=== PATIENT | male | born 1940 | race Caucasian/White ===

== ENCOUNTER 2017-04-10 05:15 | Emergency (ER) | payer OTHER ==
[2017-04-10] MEDS ORDERED: ONDANSETRON 4 MG/2 ML VIAL IVP STA (05:58)
[2017-04-10] MEDS ORDERED: RX INFO: IV CONTRAST WAS GIVEN 1 EACH MISC MISCELLANE PRN (05:58)
[2017-04-10] MEDS ORDERED: SODIUM CHLORIDE 0.9% 1,000 ML IV STA (05:58)
[2017-04-10] MEDS ORDERED: MORPHINE SULFATE 4 MG/ML SYRINGE IV STA (05:58)
[2017-04-10] MEDS ORDERED: FAMOTIDINE 20 MG/2 ML VIAL IV STA (05:59)
--- NOTE | 2017-04-10 06:02 | ED ---
General Adult HPI - General Source: patient, RN notes reviewed Mode of arrival: wheelchair Limitations: no limitations <Medardo Means - Last Filed: 04/10/17 06:25> <Jaime Gonzalez - Last Filed: 04/10/17 08:10> - General Chief complaint: Abdominal Pain Stated complaint: Abdominal Pain Time Seen by Provider: 04/10/17 05:45 - History of Present Illness Initial comments: Patient is a pleasant 76-year-old male presenting to the emergency department complaining of abdominal discomfort. Onset of symptoms was around midnight. Symptoms started following eating pizza bread with dip. Patient does question if the food was related to his symptoms. Patient has mild nausea. Discomfort is somewhat severe. Discomfort is mostly in the umbilical and epigastric region. No vomiting. No constipation or diarrhea. No history of similar symptoms previously. (Medardo Means) - Related Data Home Medications Medication Instructions Recorded Confirmed Cholecalciferol [Vitamin D3] 1,000 unit PO DAILY 04/10/17 04/10/17 Hydrocodone/Acetaminophen [[place] 1 tab PO DAILY PRN 04/10/17 04/10/17 10-325] amLODIPine [Norvasc] 10 mg PO DAILY 04/10/17 04/10/17 Allergies Allergy/AdvReac Type Severity Reaction Status Date / Time No Known Allergies Allergy Verified 04/10/17 07:57 Review of Systems ROS Other: All systems not noted in ROS Statement are negative. Constitutional: Denies: fever Eyes: Denies: eye pain ENT: Denies: ear pain Respiratory: Denies: cough Cardiovascular: Denies: chest pain Endocrine: Denies: fatigue Gastrointestinal: Reports: abdominal pain, nausea. Denies: vomiting Genitourinary: Denies: dysuria Musculoskeletal: Denies: back pain Skin: Denies: rash Neurological: Denies: headache <Medardo Means - Last Filed: 04/10/17 06:25> ROS Other: All systems not noted in ROS Statement are negative. <Jaime Gonzalez - Last Filed: 04/10/17 08:10> ROS Statement: Those systems with pertinent positive or pertinent negative responses have been documented in the HPI. Past Medical History Past Medical History: Hypertension History of Any Multi-Drug Resistant Organisms: None Reported Additional Past Surgical History / Comment(s): left AKA Past Psychological History: No Psychological Hx Reported Smoking Status: Never smoker Past Alcohol Use History: None Reported Past Drug Use History: None Reported <Medardo Means - Last Filed: 04/10/17 06:25> General Exam Limitations: no limitations General appearance: alert, in no apparent distress Head exam: Present: atraumatic Eye exam: Present: normal appearance, PERRL ENT exam: Present: normal oropharynx Neck exam: Present: normal inspection Respiratory exam: Present: normal lung sounds bilaterally Cardiovascular Exam: Present: regular rate, normal rhythm Expanded Peripheral pulses: 0: Dorsalis Pedis (L) (Patient has a prosthetic leg), 2+: Femoral (R), Femoral (L), Dorsalis Pedis (R) GI/Abdominal exam: Present: soft, tenderness (Moderate tenderness in the epigastric and umbilical region), normal bowel sounds. Absent: distended, guarding, rebound, rigid Extremities exam: Present: other (Prosthetic left leg) Back exam: Present: normal inspection. Absent: tenderness Neurological exam: Present: alert Psychiatric exam: Present: normal affect, normal mood Skin exam: Present: normal color <Medardo Means - Last Filed: 04/10/17 06:25> EKG Findings - EKG Comments: EKG Findings:: Sinus bradycardia at 52. For screening AV block [place] 216. QRS 100. QT 440. QTc 409. Normal axis. Normal QRS. Normal ST-T. <Medardo Means - Last Filed: 04/10/17 06:25> Medical Decision Making - Lab Data Result diagrams: 04/10/17 06:00 <Medardo Means - Last Filed: 04/10/17 06:25> - Lab Data Result diagrams: 04/10/17 06:00 04/10/17 06:00 <Jaime Gonzalez - Last Filed: 04/10/17 08:10> - Lab Data Lab Results 04/10/17 04/10/17 04/10/17 Range/Units 06:00 06:00 06:00 WBC 10.0 (3.8-10.6) k/uL RBC 4.76 (4.30-5.90) m/uL Hgb 14.4 (13.0-17.5) gm/dL Hct 43.2 (39.0-53.0) % MCV 90.6 (80.0-100.0) fL MCH 30.3 (25.0-35.0) pg MCHC 33.4 (31.0-37.0) g/dL RDW 13.8 (11.5-15.5) % Plt Count 214 (150-450) k/uL Neutrophils % 90 % Lymphocytes % 7 % Monocytes % 2 % Eosinophils % 0 % Basophils % 0 % Neutrophils # 9.0 H (1.3-7.7) k/uL Lymphocytes # 0.7 L (1.0-4.8) k/uL Monocytes # 0.2 (0-1.0) k/uL Eosinophils # 0.0 (0-0.7) k/uL Basophils # 0.0 (0-0.2) k/uL PT (9.0-12.0) sec INR (<1.2) APTT (22.0-30.0) sec Sodium 139 (137-145) mmol/L Potassium 4.1 (3.5-5.1) mmol/L Chloride 106 (98-107) mmol/L Carbon Dioxide 19 L (22-30) mmol/L Anion Gap 14 mmol/L BUN 15 (9-20) mg/dL Creatinine 0.93 (0.66-1.25) mg/dL Est GFR (MDRD) Af Amer >60 (>60 ml/min/1.73 sqM) Est GFR (MDRD) Non-Af >60 (>60 ml/min/1.73 sqM) Glucose 175 H (74-99) mg/dL Calcium 9.4 (8.4-10.2) mg/dL Total Bilirubin 0.7 (0.2-1.3) mg/dL AST 34 (17-59) U/L ALT 53 (21-72) U/L Alkaline Phosphatase 106 (38-126) U/L Total Creatine Kinase 108 (55-170) U/L CK-MB (CK-2) 2.7 H* (0.0-2.4) ng/mL CK-MB (CK-2) Rel Index 2.5 Troponin I <0.012 (0.000-0.034) ng/mL Total Protein 7.8 (6.3-8.2) g/dL Albumin 4.7 (3.5-5.0) g/dL Amylase 77 (30-110) U/L Lipase 138 (23-300) U/L Urine Color Urine Appearance (Clear) Urine pH (5.0-8.0) Ur Specific [place] (1.001-1.035) Urine Protein (Negative) Urine Glucose (UA) (Negative) Urine Ketones (Negative) Urine Blood (Negative) Urine Nitrite (Negative) Urine Bilirubin (Negative) Urine Urobilinogen (<2.0) mg/dL Ur Leukocyte Esterase (Negative) Urine RBC (0-5) /hpf Urine WBC (0-5) /hpf 04/10/17 04/10/17 Range/Units 06:00 07:00 WBC (3.8-10.6) k/uL RBC (4.30-5.90) m/uL Hgb (13.0-17.5) gm/dL Hct (39.0-53.0) % MCV (80.0-100.0) fL MCH (25.0-35.0) pg MCHC (31.0-37.0) g/dL RDW (11.5-15.5) % Plt Count (150-450) k/uL Neutrophils % % Lymphocytes % % Monocytes % % Eosinophils % % Basophils % % Neutrophils # (1.3-7.7) k/uL Lymphocytes # (1.0-4.8) k/uL Monocytes # (0-1.0) k/uL Eosinophils # (0-0.7) k/uL Basophils # (0-0.2) k/uL PT 9.8 (9.0-12.0) sec INR 1.0 (<1.2) APTT 23.6 (22.0-30.0) sec Sodium (137-145) mmol/L Potassium (3.5-5.1) mmol/L Chloride (98-107) mmol/L Carbon Dioxide (22-30) mmol/L Anion Gap mmol/L BUN (9-20) mg/dL Creatinine (0.66-1.25) mg/dL Est GFR (MDRD) Af Amer (>60 ml/min/1.73 sqM) Est GFR (MDRD) Non-Af (>60 ml/min/1.73 sqM) Glucose (74-99) mg/dL Calcium (8.4-10.2) mg/dL Total Bilirubin (0.2-1.3) mg/dL AST (17-59) U/L ALT (21-72) U/L Alkaline Phosphatase (38-126) U/L Total Creatine Kinase (55-170) U/L CK-MB (CK-2) (0.0-2.4) ng/mL CK-MB (CK-2) Rel Index Troponin I (0.000-0.034) ng/mL Total Protein (6.3-8.2) g/dL Albumin (3.5-5.0) g/dL Amylase (30-110) U/L Lipase (23-300) U/L Urine Color Yellow Urine Appearance Clear (Clear) Urine pH 6.0 (5.0-8.0) Ur Specific [place] 1.012 (1.001-1.035) Urine Protein 1+ H (Negative) Urine Glucose (UA) 2+ H (Negative) Urine Ketones Negative (Negative) Urine Blood Negative (Negative) Urine Nitrite Negative (Negative) Urine Bilirubin Negative (Negative) Urine Urobilinogen <2.0 (<2.0) mg/dL Ur Leukocyte Esterase Negative (Negative) Urine RBC 1 (0-5) /hpf Urine WBC <1 (0-5) /hpf Disposition <Medardo Means - Last Filed: 04/10/17 06:25> <Jaime Gonzalez - Last Filed: 04/10/17 08:10> Clinical Impression: Abdominal pain Disposition: HOME SELF-CARE Condition: Good Instructions: Abdominal Pain (ED) Referrals: Dominic Conrad DO [Primary Care Provider] - 1-2 days
[2017-04-10 06:12] LABS: Basophils % (A) 0 %; CH 30.8; CHCM 34.1; Eosinophils % (A) 0 %; HCT 43.2 % (39.0-53.0); HDW 2.55; HGB 14.4 gm/dL (13.0-17.5); Luc # (Auto) 0.04; Luc % (Auto) 0; Lymphocytes # (A) 0.7 k/uL (1.0-4.8); Lymphocytes % (A) 7 %; MCH 30.3 pg (25.0-35.0); MCHC 33.4 g/dL (31.0-37.0); MCV 90.6 fL (80.0-100.0); Mean Platelet Volume 7.9; Monocytes # (A) 0.2 k/uL (0-1.0); Monocytes % (A) 2 %; Neutrophils % (A) 90 %; RBC 4.76 m/uL (4.30-5.90); RDW 13.8 % (11.5-15.5); WBC (Perox) 9.28
[2017-04-10 06:26] LABS: Partial Thromboplastin Time 23.6 sec (22.0-30.0); Prothrombin Time 9.8 sec (9.0-12.0)
[2017-04-10] MEDS ORDERED: MORPHINE SULFATE 4 MG/ML SYRINGE IVP STA (06:37)
[2017-04-10 06:43] LABS: Blood Urea Nitrogen 15 mg/dL (9-20); Calcium 9.4 mg/dL (8.4-10.2); Carbon Dioxide 19 mmol/L (22-30); Sodium 139 mmol/L (137-145); Total Bilirubin 0.7 mg/dL (0.2-1.3); Total Protein 7.8 g/dL (6.3-8.2)
[2017-04-10 06:52] LABS: Troponin I <0.012 ng/mL (0.000-0.034)
[2017-04-10 06:59] LABS: Creatine Kinase 108 U/L (55-170)
[2017-04-10 07:02] LABS: ALT 53 U/L (21-72); AST 34 U/L (17-59); Alkaline Phosphatase 106 U/L (38-126); Amylase 77 U/L (30-110); Anion Gap 14 mmol/L; Chloride 106 mmol/L (98-107); Glucose 175 mg/dL (74-99); Non-African American GFR(MDRD) >60 (>60 ml/min/1.73 sqM); Potassium 4.1 mmol/L (3.5-5.1)
[2017-04-10 07:04] LABS: Creatine Kinase MB 2.7 ng/mL (0.0-2.4)
[2017-04-10 07:22] LABS: Appearance,Urine Clear (Clear); Bilirubin,Urine Negative (Negative); Glucose,Urine (UA) 2+ (Negative); Ketones,Urine Negative (Negative); Leukocyte Esterase,Urine Negative (Negative); Nitrite,Urine Negative (Negative); Particle Count 550; Protein,Urine 1+ (Negative); RBC,Urine 1 /hpf (0-5); Specific Gravity,Urine 1.012 (1.001-1.035); UA Billing (MACRO vs. MICRO) MICRO; Urobilinogen,Urine <2.0 mg/dL (<2.0); WBC,Urine <1 /hpf (0-5)
--- NOTE | 2017-04-10 07:57 | CT ---
EXAMINATION TYPE: CT abdomen pelvis w con DATE OF EXAM: 04/10/2017 COMPARISON: NONE HISTORY: Mid abd pain CT DLP: 1548 mGycm CONTRAST: CT scan of the abdomen and pelvis is performed without Oral Contrast and with IV Contrast, patient in jected with 100 mL of Omnipaque 300. FINDINGS: LUNG BASES-: Nodular density left lateral lung base is nonspecific and measures 2.4 x 1.0 cm. This co uld reflect an area of postinflammatory change. Follow-up however is recommended in 3-4 months. LIVER/GB: The gallbladder is hydropic and measures 9.3 cm in greatest dimension. There is evidence of cholelithiasis. No gallbladder wall thickening or pericholecystic fluid. No evidence for common bi le duct dilatation. No space occupying hepatic lesion. Biliary tree is of normal caliber. PANCREAS: No inflammation. No distinct mass. SPLEEN: No splenic enlargement. No lesion seen. ADRENALS: 9 mm left adrenal nodule likely reflects an adenoma. The right adrenal gland is unremarkab le. No thickening. KIDNEYS/BLADDER: No hydronephrosis. No nephrolithiasis. Subcentimeter bilateral renal cysts are no margarita one within each kidney. Urinary bladder grossly unremarkable. BOWEL: Normal appendix. Normal bowel caliber. No inflammation. There is sigmoid diverticulosis with out diverticulitis. GENITAL ORGANS: Prostate enlargement with central glandular calcification. LYMPH NODES: No greater than 1cm abdominal or pelvic lymph nodes are appreciated. AORTA: Nonaneurysmal atheromatous change of the abdominal aorta. OSSEOUS STRUCTURES: Gender changes lumbar spine. Grade 1 retrolisthesis of L3 on L4 and grade 1 anter olisthesis of L4 and L5. OTHER: No significant additional abnormality is seen. IMPRESSION: 1. Gallbladder hydrops with cholelithiasis. No evidence for gallbladder wall thickening or pericholec ystic fluid. 2. Nonspecific nodular density left lateral lung base. Correlate clinically and consider follow-up st [facility] in 3-4 months. 3. Sigmoid diverticulosis without diverticulitis.
[2017-04-10 08:53] VITALS: BP 173/79; PULSE 68; RESP 16; TEMP 97
== END 2017-04-10 08:53 | disposition home or self-care (01) ==
LOC: EC 05:15
DX: R10.13 Epigastric pain (principal); R10.33 Periumbilical pain; R11.2 Nausea with vomiting, unspecified; I10 Essential (primary) hypertension; Z79.899 Other long term (current) drug therapy; Z97.14 Presence of artificial left leg (complete) (partial)
CPT/HCPCS: 36415; 93005; 80053; 82150; 82550; 82553; 83690; 84484; 85025; 85610; 85730; 81001; 74177; 99284; 96374; 96375 ×2; 96376; 96361 ×3; J2270; J2405; Q9967

== ENCOUNTER 2017-09-23 11:00 | Emergency (ER) | payer OTHER ==
[2017-09-23 11:06] VITALS: RESP 16
[2017-09-23] MEDS ORDERED: HYDROcodone/APAP 10-325MG 1 EACH TAB PO ONE (12:51)
[2017-09-23] MEDS ORDERED: HYDROmorphone 1 MG/ML 1 ML SYRINGE IM STA ×2 (13:21→15:26)
--- NOTE | 2017-09-23 13:39 | ED ---
Back Pain HPI - General Chief Complaint: Back Pain/Injury Stated Complaint: Pain on lt side up to the back Time Seen by Provider: 09/23/17 12:21 Source: patient, RN notes reviewed, old records reviewed Limitations: no limitations - History of Present Illness Initial Comments: this patient is a 76-year-old male presents emergency room with a chief complaint of left thigh, pelvis pain. He reports that he fell out of his truck yesterday. 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 Patient reports that he uses his prosthetic device all the time. He reports that he thinks that his prosthetic device hit him hard in the mid thigh when he fell out of his truck yesterday. He denies any other injuries associated with the fall. He reports that he has pain whenever he lays back fully. He denies any other symptoms at this time including saddle anesthesias or urinary changes. - Related Data Home Medications Medication Instructions Recorded Confirmed Cholecalciferol [Vitamin D3] 1,000 unit PO DAILY 04/10/17 09/23/17 Hydrocodone/Acetaminophen [[facility] 1 tab PO DAILY PRN 04/10/17 09/23/17 10-325] amLODIPine [Norvasc] 10 mg PO DAILY 04/10/17 09/23/17 Previous Rx's Medication Instructions Recorded Cyclobenzaprine [Flexeril] 10 mg PO TID #15 tab 09/23/17 HYDROcodone/APAP 5-325MG [[facility] 1 tab PO Q6HR PRN #15 tab 09/23/17 5-325] Allergies Allergy/AdvReac Type Severity Reaction Status Date / Time No Known Allergies Allergy Verified 09/23/17 13:08 Review of Systems ROS Statement: Those systems with pertinent positive or pertinent negative responses have been documented in the HPI. ROS Other: All systems not noted in ROS Statement are negative. Past Medical History Past Medical History: Hypertension History of Any Multi-Drug Resistant Organisms: None Reported Additional Past Surgical History / Comment(s): left AKA Past Psychological History: No Psychological Hx Reported Smoking Status: Never smoker Past Alcohol Use History: None Reported Past Drug Use History: None Reported General Exam - General Exam Comments Initial Comments: 76-year-old male. Patient is alert and oriented 4. He does not appear to be in any acute distress. Limitations: no limitations General appearance: alert, in no apparent distress Head exam: Present: atraumatic Eye exam: Present: normal appearance, PERRL, EOMI. Absent: scleral icterus, conjunctival injection, periorbital swelling ENT exam: Present: normal exam, mucous membranes moist Neck exam: Present: normal inspection. Absent: tenderness, meningismus, lymphadenopathy Respiratory exam: Present: normal lung sounds bilaterally. Absent: respiratory distress, wheezes, rales, rhonchi, stridor Cardiovascular Exam: Present: regular rate, normal rhythm, normal heart sounds. Absent: systolic murmur, diastolic murmur, rubs, gallop, clicks GI/Abdominal exam: Present: soft, normal bowel sounds. Absent: distended, tenderness, guarding, rebound, rigid Extremities exam: Present: normal inspection, full ROM, normal capillary refill. Absent: tenderness, pedal edema, joint swelling, calf tenderness Left Hip exam: Present: normal inspection. Absent: full ROM (pain with ROM of flexion and extension of hip. Patient has pain over posterior lumbar spine. ) Upper Leg exam: Present: full ROM, tenderness (over proximal quadriceps and pelvis. ). Absent: normal inspection (left mid thigh amputee. PAtient has prosthetic leg. Skin appears well, no ecchymosis or ulcerations. ) Back exam: Present: normal inspection, tenderness (over sacrum and left pelvis. Patient reports he cannot lay down without pain. ) Neurological exam: Present: alert, oriented X3, CN II-XII intact Psychiatric exam: Present: normal affect, normal mood Skin exam: Present: warm, dry, intact, normal color. Absent: rash Course Vital Signs 09/23/17 09/23/17 09/23/17 11:01 13:03 14:20 Temperature 97.8 F 97.8 F Pulse Rate 64 64 Respiratory 16 16 16 Rate Blood Pressure 174/79 146/70 O2 Sat by Pulse 99 97 Oximetry 09/23/17 09/23/17 15:24 16:11 Temperature 98.1 F 97.8 F Pulse Rate 73 75 Respiratory 16 16 Rate Blood Pressure 173/80 161/79 O2 Sat by Pulse 98 98 Oximetry Medical Decision Making - Medical Decision Making this patient is a 76-year-old male presents emergency room with a chief complaint of left thigh, pelvis pain. He reports that he fell out of his truck yesterday. 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 Patient reports that he uses his prosthetic device all the time. He reports that he thinks that his prosthetic device hit him hard in the mid thigh when he fell out of his truck yesterday. Patient had severe pain with laying down on lumbar spine and pelvis, receiced 2 IM pain injections. Patient underwent xray which show no acute changes. CT pelvis without contrast completed and shows degernative changes in lumbar spine, no acute pelvic or hip fracture. Patient informed of this. I believe minda has pinched nerve within lumbar region causing pain with reclining. Discussed [facility] pain medication and follow up with his electronic health records specialist. Patient agrees to treatment plan and will comply , return parameter discussed. - Radiology Data Radiology results: report reviewed Khoi arthritic degenerative change bilateral hips. No acute osseous normality is evident. Degenerative changes of the lumbar spine. Mild diverticulosis without diverticulitis. Disposition Clinical Impression: Fall, Pain of back and left lower extremity, Degenerative arthritis of lumbar spine Disposition: HOME SELF-CARE Condition: Good Instructions: Acute Low Back Pain (ED) Additional Instructions: Patient has a follow-up with primary care provider in the [place]. Return to emergency department if any alarming signs or symptoms occur. Prescriptions: Cyclobenzaprine [Flexeril] 10 mg PO TID #15 tab HYDROcodone/APAP 5-325MG [[facility] 5-325] 1 tab PO Q6HR PRN #15 tab PRN Reason: Pain Referrals: Dominic Conrad DO [Primary Care Provider] - 1-2 days Time of Disposition: 15:43
--- NOTE | 2017-09-23 14:37 | XR ---
EXAMINATION TYPE: XR femur LT DATE OF EXAM: 09/23/2017 COMPARISON: NONE HISTORY: Pain TECHNIQUE: 5 views submitted FINDINGS: Arthropathy of the hip joint and diffuse osteopenia. Previous surgery noted compatible with amputation. IMPRESSION: No acute fracture. If symptoms persist follow-up exam 7-10 days recommended.
--- NOTE | 2017-09-23 14:39 | XR ---
EXAMINATION TYPE: XR Hip LT and AP Pelvis DATE OF EXAM: 09/23/2017 COMPARISON: NONE HISTORY: Left leg pain TECHNIQUE: A single AP view of the pelvis is obtained. Two views of the left hip are obtained. FINDINGS: There is no acute fracture/dislocation evident in the pelvis. Mild arthropathy of the hip joints. Vascular calcifications in the pelvis. Calcification within the greater trochanteric region n oted. The overlying soft tissue appears unremarkable. Two views of left hip show no acute fracture or dislocation. No focal lytic or sclerotic lesion seen in the proximal femur. The overlying soft tissue is unremarkable. IMPRESSION: There is no acute fracture or dislocation in the pelvis or left hip.
--- NOTE | 2017-09-23 15:33 | CT ---
EXAMINATION TYPE: CT pelvis wo con DATE OF EXAM: 09/23/2017 COMPARISON: NONE HISTORY: Left hip and femur pain, hx of fall injury CT DLP: 841 mGycm Automated exposure control for dose reduction was used. FINDINGS: CT of the pelvis with attention to the left hip is performed in the axial plane at 3 mm thick section s. Prostate calcification is present. Urinary bladder is visualized is normal. Fecal debris is within th e colon. Few scattered diverticuli within the sigmoid colon. Small bowel loops appear unremarkable. V ascular calcifications within the aorta. Facet degenerative changes are within the lumbar spine. Sacroiliac joints appear within normal limits . Femoral heads articulate with the acetabulum. No acute fractures are evident. Joint spaces are narrow ed. Reconstructed images are reviewed in the coronal and sagittal plane. No significant interval change f rom 04/10/2017 is evident. IMPRESSION: 1. OSTEOARTHRITIC DEGENERATIVE CHANGE BILATERAL HIPS. NO ACUTE OSSEOUS ABNORMALITY IS EVIDENT. 2. DEGENERATIVE DISC CHANGES WITHIN THE LUMBAR SPINE. 3. MILD DIVERTICULOSIS WITHOUT ACUTE DIVERTICULITIS.
[2017-09-23 16:12] VITALS: BP 161/79; PULSE 75; TEMP 97.8
== END 2017-09-23 16:31 | disposition home or self-care (01) ==
LOC: EC 11:00
DX: M47.816 Spondylosis without myelopathy or radiculopathy, lumbar region (principal); M16.0 Bilateral primary osteoarthritis of hip; K57.90 Diverticulosis of intestine, part unspecified, without perforation or abscess without bleeding; R10.2 Pelvic and perineal pain; I10 Essential (primary) hypertension; Z79.899 Other long term (current) drug therapy; Z89.612 Acquired absence of left leg above knee; V69.9XXA Occupant (driver) (passenger) of heavy transport vehicle injured in unspecified traffic accident, initial encounter
CPT/HCPCS: 73502; 73552; 72192; 99284; 96372 ×2; J1170

== ENCOUNTER 2017-09-24 19:00 | Emergency (ER) | payer OTHER ==
[2017-09-24] MEDS ORDERED: methylPREDNISolone SOD SUCCI 125 MG/2 ML VIAL IM STA (19:33)
[2017-09-24] MEDS ORDERED: HYDROmorphone 1 MG/ML 1 ML SYRINGE IM STA (19:33)
--- NOTE | 2017-09-24 19:55 | ED ---
General Adult HPI - General Chief complaint: Back Pain/Injury Stated complaint: pain back and rt leg Time Seen by Provider: 09/24/17 19:23 Source: patient, RN notes reviewed Mode of arrival: wheelchair Limitations: physical limitation - History of Present Illness Initial comments: 76-year-old male presents to the emergency department with a chief complaint of left leg pain. He's had this pain for the past 4 weeks. [facility]. He states he is currently getting follow-up to a specialist but he continues have the pain. He states he has not was at home which are not helping with the pain. He states it's in his left lower extremity. Patient denies any recent injury but states when this started. Have a fall. There is no head injury. Patient was concerned due to the continued pain and pain medication yesterday did help until about 4:00 today with a pain free flared up. Patient denies any recent fever, chills, shortness of breath, chest pain, back pain, abdominal pain, nausea vomiting, numbness or tingling, dysuria or hematuria, constipation or diarrhea, headaches or visual changes, or any other current symptoms. - Related Data Home Medications Medication Instructions Recorded Confirmed Cholecalciferol [Vitamin D3] 1,000 unit PO DAILY 04/10/17 09/23/17 Hydrocodone/Acetaminophen [[place] 1 tab PO DAILY PRN 04/10/17 09/23/17 10-325] amLODIPine [Norvasc] 10 mg PO DAILY 04/10/17 09/23/17 Previous Rx's Medication Instructions Recorded Cyclobenzaprine [Flexeril] 10 mg PO TID #15 tab 09/23/17 HYDROcodone/APAP 5-325MG [[place] 1 tab PO Q6HR PRN #15 tab 09/23/17 5-325] HYDROcodone/APAP 10-325MG [[place] 1 tab PO Q4HR PRN #10 tab 09/24/17 10-325] Allergies Allergy/AdvReac Type Severity Reaction Status Date / Time No Known Allergies Allergy Verified 09/23/17 13:08 Review of Systems ROS Statement: Those systems with pertinent positive or pertinent negative responses have been documented in the HPI. ROS Other: All systems not noted in ROS Statement are negative. Past Medical History Past Medical History: Hypertension History of Any Multi-Drug Resistant Organisms: None Reported Additional Past Surgical History / Comment(s): left AKA Past Psychological History: No Psychological Hx Reported Smoking Status: Never smoker Past Alcohol Use History: None Reported Past Drug Use History: None Reported General Exam Limitations: physical limitation General appearance: alert, in no apparent distress ENT exam: Present: normal exam, mucous membranes moist Neck exam: Present: normal inspection. Absent: tenderness, meningismus, lymphadenopathy Respiratory exam: Present: normal lung sounds bilaterally. Absent: respiratory distress, wheezes, rales, rhonchi, stridor Cardiovascular Exam: Present: regular rate, normal rhythm, normal heart sounds. Absent: systolic murmur, diastolic murmur, rubs, gallop, clicks Back exam: Present: normal inspection, full ROM, tenderness (left SI joint) Neurological exam: Present: alert, oriented X3 Psychiatric exam: Present: normal affect, normal mood Skin exam: Present: warm, dry, intact, normal color. Absent: rash Course Vital Signs 09/24/17 19:19 Temperature 96.5 F L Pulse Rate 71 Respiratory 17 Rate Blood Pressure 152/79 O2 Sat by Pulse 97 Oximetry Medical Decision Making - Medical Decision Making 76-year-old male presents for left leg pain. At this time patient's CAT scan is reviewed that does show that he has spinal stenosis. We discussed this result with him. We discussed close follow-up with Dr. Quiñones we discussed return parameters all questions. Patient stated he understood he is given this plan. This and we will be discharged. - Radiology Data Radiology results: report reviewed, image reviewed Disposition Clinical Impression: Spinal stenosis Disposition: HOME SELF-CARE Condition: Stable Instructions: Lumbar Spinal Stenosis (ED) Additional Instructions: Please use medication as discussed. Please follow up with family doctor if symptoms have not improved over the next two days. Please return to the emergency room if your symptoms increase or worsen or for any other concerns. Prescriptions: HYDROcodone/APAP 10-325MG [[place] 10-325] 1 tab PO Q4HR PRN #10 tab PRN Reason: Pain Referrals: Dominic Conrad DO [Primary Care Provider] - 1-2 days Time of Disposition: 21:45
[2017-09-24] MEDS ORDERED: LORazepam 2 MG/ML INJ IM STA (20:06)
--- NOTE | 2017-09-24 21:23 | CT ---
EXAMINATION TYPE: CT lumbar spine wo con DATE OF EXAM: 09/24/2017 8:59 PM COMPARISON: Portable upright HISTORY: Low back pain radiating down left leg. TECHNIQUE: Unenhanced CT of the lumbar spine was performed. Bone and soft tissue window settings are submitted as well as coronal and sagittal reconstructions. Automated exposure control for dose reduc tion was used. CT DLP: 1262.5 mGycm FINDINGS: There is no fracture or malalignment. No focal skeletal lesions. Dextrocurvature with apex at the thoracolumbar junction is noted, this may or may not be positional. Spinal straightening is noted on the sagittal sequence. There are multilevel moderate and marked lumbar spondylosis changes. 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 There is high-grade central canal and lateral recess spinal stenosis at the L3-4 and L4-5 levels, wit h moderate-grade lateral recess stenosis seen at the L2-3 and L5-S1 levels. Miscellaneous: Cholelithiasis is incidentally noted. IMPRESSION: 1. HIGH-GRADE CENTRAL CANAL AND LATERAL RECESS SPINAL STENOSIS AT L3-4 AND L4-5. 2. MODERATE-GRADE LATERAL RECESS SPINAL STENOSIS AT L2-3 AND L5-S1.
[2017-09-24 22:05] VITALS: BP 165/75; PULSE 65; RESP 18; TEMP 97
== END 2017-09-24 22:01 | disposition home or self-care (01) ==
LOC: EC 19:00
DX: M48.061 Spinal stenosis, lumbar region without neurogenic claudication (principal); M48.07 Spinal stenosis, lumbosacral region; I10 Essential (primary) hypertension; Z89.612 Acquired absence of left leg above knee; Z79.899 Other long term (current) drug therapy
CPT/HCPCS: 72131; 99283; 96372 ×3; J2060; J2930; J1170

== ENCOUNTER 2017-10-27 17:08 | Emergency (ER) | payer OTHER ==
[2017-10-27 17:56] VITALS: BP 171/77; PULSE 52; RESP 18; TEMP 97.5
[2017-10-27] MEDS ORDERED: ONDANSETRON 4 MG ODT STARTER PACK 2 TAB BTL PO STA (18:17)
[2017-10-27] MEDS ORDERED: HYDROmorphone 2 MG/ML 1 ML SYRINGE IM STA (18:17)
--- NOTE | 2017-10-27 18:25 | ED ---
General Adult HPI - General Chief complaint: Back Pain/Injury Stated complaint: PAIN ALL OVER X 3 DAYS, POSS WITHDRAWALS Time Seen by Provider: 10/27/17 18:01 Source: patient, RN notes reviewed Mode of arrival: ambulatory Limitations: no limitations - History of Present Illness Initial comments: Patient 77-year-old male who presents emergency room today with a chief complaint of a chronic pain. He does admit to pain in his lower back going down the left leg. Patient does admit that he receives medications from the [facility]. He states he has been waiting for a prescription, and the mail. He states it has not arrived. Patient omits that he's been on the phone trying to get a hold empty final on a is been having increased pain due to it difficult time sleeping. Patient states that he could not take it today and decided to come to be seen to see if there was something that we can do about it. Patient denies any new injury or trauma. He states that his symptoms are chronic and there is nothing new. Patient denies any recent fever, chills, shortness of breath, chest pain, headaches or visual changes, or any other complaints. - Related Data Home Medications Medication Instructions Recorded Confirmed Cholecalciferol [Vitamin D3] 1,000 unit PO DAILY 04/10/17 09/23/17 Hydrocodone/Acetaminophen [[place] 1 tab PO DAILY PRN 04/10/17 09/23/17 10-325] amLODIPine [Norvasc] 10 mg PO DAILY 04/10/17 09/23/17 Previous Rx's Medication Instructions Recorded Cyclobenzaprine [Flexeril] 10 mg PO TID #15 tab 09/23/17 HYDROcodone/APAP 5-325MG [[place] 1 tab PO Q6HR PRN #15 tab 09/23/17 5-325] HYDROcodone/APAP 10-325MG [[place] 1 tab PO Q4HR PRN #10 tab 09/24/17 10-325] Allergies Allergy/AdvReac Type Severity Reaction Status Date / Time No Known Allergies Allergy Verified 10/27/17 17:56 Review of Systems ROS Statement: Those systems with pertinent positive or pertinent negative responses have been documented in the HPI. ROS Other: All systems not noted in ROS Statement are negative. Past Medical History Past Medical History: Hypertension Additional Past Medical History / Comment(s): back pain History of Any Multi-Drug Resistant Organisms: None Reported Past Surgical History: Orthopedic Surgery Additional Past Surgical History / Comment(s): left AKA Past Psychological History: No Psychological Hx Reported Smoking Status: Never smoker Past Alcohol Use History: None Reported Past Drug Use History: None Reported General Exam - General Exam Comments Initial Comments: General: The patient is awake and alert, in no distress, and does not appear acutely ill. Eye: Pupils are equal, round and reactive to light, extra-ocular movements are intact. No nystagmus. There is normal conjunctiva bilaterally. No signs of icterus. Ears, nose, mouth and throat: There are moist mucous membranes and no oral lesions. Neck: The neck is supple, there is no tenderness or JVD. Cardiovascular: There is a regular rate and rhythm. No murmur, rub or gallop is appreciated. Respiratory: Lungs are clear to auscultation, respirations are non-labored, breath sounds are equal. No wheezes, stridor, rales, or rhonchi. Musculoskeletal: Normal ROM. Normal appearance of the lower lumbar. Does have tenderness beginning in the lumbar area. No step-off deformity. No tenderness in the thoracic. Neurological: A&O x 3. CN II-XII intact, There are no obvious motor or sensory deficits. Coordination appears grossly intact. Speech is normal. Skin: Skin is warm and dry and no rashes or lesions are noted. Psychiatric: Cooperative, appropriate mood & affect, normal judgment. Limitations: no limitations Course Vital Signs 10/27/17 17:52 Temperature 97.5 F L Pulse Rate 52 L Respiratory 18 Rate Blood Pressure 171/77 O2 Sat by Pulse 100 Oximetry Medical Decision Making - Medical Decision Making Patient advised that we cannot fill a pain prescription for narcotics here in the emergency room. Did discuss with patient that we could give him a tab of his [place] here or a shot of medication. He states he would rather have a shot. Patient was given dose of Dilaudid and will be discharged advised to follow- up with [facility] tomorrow. Disposition Clinical Impression: Chronic low back pain Disposition: HOME SELF-CARE Condition: Good Instructions: Chronic Back Pain (ED) Additional Instructions: [facility] Please return here to the emergency room if any symptoms increase or worsen. Referrals: [facility]inic [Primary Care Provider] - 1-2 days Time of Disposition: 18:23
== END 2017-10-27 18:32 | disposition home or self-care (01) ==
LOC: EC 17:08
DX: G89.29 Other chronic pain (principal); M54.5 Low back pain; I10 Essential (primary) hypertension; Z79.899 Other long term (current) drug therapy
CPT/HCPCS: 99283; 96372; J1170; S0119

== ENCOUNTER 2020-06-24 21:41 | Inpatient (IN) | payer OTHER, MEDICARE ==
--- NOTE | 2020-06-24 22:13 | ED ---
Neuro HPI - General Chief Complaint: Neuro Symptoms/Deficit Stated Complaint: Altered Status, Confusion Time Seen by Provider: 06/24/20 22:07 Source: patient Mode of arrival: wheelchair Limitations: no limitations - History of Present Illness Is the patient presenting with stroke symptoms?: Yes Last Known Well Date: 06/24/20 Last Known Well Time: 17:00 Onset/Timin -: hour(s) Initial Comments: Anand is a very pleasant 79-year-old gentleman who is brought to the ER today by his son for evaluation of left-sided facial droop, left arm weakness and concern for a stroke. Son states that symptoms began around 5 PM. He no ticed that the patient seemed to have a little bit of trouble speaking left- sided facial droop and weakness in his left arm. He still able to ambulate doesn't appear to have any weakness in the leg though he does have a left [id number] and rotation with the prosthesis. Patient has no stroke history. No significant cardiac history no history of arrhythmia he is not on any anticoagulant or antiplatelet medications. - Related Data Home Medications: Home Medications Medication Instructions Recorded Confirmed Cholecalciferol [Vitamin D3] 1,000 unit PO DAILY 04/10/17 06/24/20 Hydrocodone/Acetaminophen [[place] 2 tab PO QID PRN 04/10/17 06/24/20 10-325] amLODIPine [Norvasc] 10 mg PO DAILY 04/10/17 06/24/20 Naloxone HCl [Narcan] 4 mg NASAL ONCE PRN 06/24/20 06/24/20 Potassium Chloride ER [K-Dur 10] 10 meq PO DAILY 06/24/20 06/24/20 Allergies/Adverse Reactions: Allergies Allergy/AdvReac Type Severity Reaction Status Date / Time No Known Allergies Allergy Verified 06/24/20 23:33 Review of Systems ROS Statement: Those systems with pertinent positive or pertinent negative responses have been documented in the HPI. ROS Other: All systems not noted in ROS Statement are negative. General Exam - General Exam Comments Initial Comments: Physical Exam GENERAL: Patient is well-developed and well-nourished Patient is nontoxic and well-hydrated and is in no distress HENT: Normocephalic, Atraumatic EYES: PERRL, EOMI PULMONARY: Unlabored respirations. No audible rales rhonchi or wheezing was noted CARDIOVASCULAR: There is a regular rate and rhythm without any murmurs gallops or rubs. ABDOMEN: Soft and nontender with normal bowel sounds SKIN: Skin is clear with no lesions or rashes and otherwise unremarkable : Deferred NEUROLOGIC: Patient is alert and oriented x3. Left sided facial droop Left arm droop MUSCULOSKELETAL: Normal extremities with adequate strength and full range of motion. LEFT AKA PSYCHIATRIC: Appropriate situational anxiety Limitations: no limitations Stroke MDM - Lab Data Result diagrams: 06/25/20 04:05 06/25/20 04:05 Lab Results 06/24/20 06/24/20 06/24/20 Range/Units 22:08 22:11 22:11 WBC 6.9 (3.8-10.6) k/uL RBC 4.57 (4.30-5.90) m/uL Hgb 13.1 (13.0-17.5) gm/dL Hct 41.2 (39.0-53.0) % MCV 90.1 (80.0-100.0) fL MCH 28.6 (25.0-35.0) pg MCHC 31.8 (31.0-37.0) g/dL RDW 13.2 (11.5-15.5) % Plt Count 190 (150-450) k/uL Neutrophils % 67 % Lymphocytes % 24 % Monocytes % 5 % Eosinophils % 1 % Basophils % 0 % Neutrophils # 4.7 (1.3-7.7) k/uL Lymphocytes # 1.7 (1.0-4.8) k/uL Monocytes # 0.4 (0-1.0) k/uL Eosinophils # 0.1 (0-0.7) k/uL Basophils # 0.0 (0-0.2) k/uL PT 9.9 (9.0-12.0) sec INR 0.9 (<1.2) APTT 24.0 (22.0-30.0) sec Sodium (137-145) mmol/L Potassium (3.5-5.1) mmol/L Chloride (98-107) mmol/L Carbon Dioxide (22-30) mmol/L Anion Gap mmol/L BUN (9-20) mg/dL Creatinine (0.66-1.25) mg/dL Est GFR (CKD-EPI)AfAm (>60 ml/min/1.73 sqM) Est GFR (CKD-EPI)NonAf (>60 ml/min/1.73 sqM) Glucose (74-99) mg/dL POC Glucose (mg/dL) 109 H (75-99) mg/dL POC Glu Needle Polisher ID Riya Marino Calcium (8.4-10.2) mg/dL Total Bilirubin (0.2-1.3) mg/dL AST (17-59) U/L ALT (4-49) U/L Alkaline Phosphatase (38-126) U/L Troponin I (0.000-0.034) ng/mL Total Protein (6.3-8.2) g/dL Albumin (3.5-5.0) g/dL 06/24/20 06/24/20 Range/Units 22:11 22:11 WBC (3.8-10.6) k/uL RBC (4.30-5.90) m/uL Hgb (13.0-17.5) gm/dL Hct (39.0-53.0) % MCV (80.0-100.0) fL MCH (25.0-35.0) pg MCHC (31.0-37.0) g/dL RDW (11.5-15.5) % Plt Count (150-450) k/uL Neutrophils % % Lymphocytes % % Monocytes % % Eosinophils % % Basophils % % Neutrophils # (1.3-7.7) k/uL Lymphocytes # (1.0-4.8) k/uL Monocytes # (0-1.0) k/uL Eosinophils # (0-0.7) k/uL Basophils # (0-0.2) k/uL PT (9.0-12.0) sec INR (<1.2) APTT (22.0-30.0) sec Sodium 137 (137-145) mmol/L Potassium 4.4 (3.5-5.1) mmol/L Chloride 106 (98-107) mmol/L Carbon Dioxide 23 (22-30) mmol/L Anion Gap 8 mmol/L BUN 24 H (9-20) mg/dL Creatinine 1.29 H (0.66-1.25) mg/dL Est GFR (CKD-EPI)AfAm 61 (>60 ml/min/1.73 sqM) Est GFR (CKD-EPI)NonAf 53 (>60 ml/min/1.73 sqM) Glucose 118 H (74-99) mg/dL POC Glucose (mg/dL) (75-99) mg/dL POC Glu Needle Polisher ID Calcium 9.6 (8.4-10.2) mg/dL Total Bilirubin 0.6 (0.2-1.3) mg/dL AST 27 (17-59) U/L ALT 20 (4-49) U/L Alkaline Phosphatase 116 (38-126) U/L Troponin I <0.012 (0.000-0.034) ng/mL Total Protein 7.9 (6.3-8.2) g/dL Albumin 4.9 (3.5-5.0) g/dL - NIH Stroke Scale 1a. Level of Consciousness: (0) alert 1b. LOC Questions: (0) answers correctly 1c. LOC Commands: (0) performs tasks correctly 2. Best Gaze: (0) normal 3. Visual: (0) no visual loss 4. Facial Palsy: (1) minor paralysis 5a. Motor Arm Left: (1) drift 5b. Motor Arm Right: (0) no drift 6a. Motor Leg Left: (0) no drift 6b. Motor Leg Right: (0) no drift 7. Limb Ataxia: (0) absent 8. Sensory: (0) normal 9. Best Language: (0) no aphasia 10. Dysarthria: (1) mild/moderate dysarthria 11. Extinction/Inattention: (0) no abnormality - Thrombolytic Inclusion/Exclusion Thrombolytic Exclusion Criteria: Symptom Onset > 4.5 Hours Thrombolytic Contraindications: Stroke Too Mild - Medical Decision Making The patient was seen and evaluated immediately upon arrival to the emergency department Patient has left-sided facial droop, left arm weakness mild dysarthria Code stroke activated EKG and avionics system engineer confirms new-onset atrial fibrillation Blood pressure is well-controlled, A. fib is rate controlled Patient care was discussed with Dr. Coty Ace on patient's minimal symptoms and CT CTA findings he feels that the risk of thrombectomy outweighs the benefit at this point. Recommends medical management with loading dose of Brilinta 180, Lipitor 80, aspirin 325. Recommends Brilenta 90 BID, Lipitor 40 daily. Adm ission to the ICU for frequent neuro checks. Patient care was discussed with Dr. Thomason who accepts admission to ICU for neurochecks after acute CVA Patient care discussed with Andrew from [facility] who accepts the admission on behalf of Dr Renee - Radiology Data Radiology results: report reviewed, image reviewed - EKG Data -: EKG Interpreted by Me EKG was obtained as part of the stroke workup, EKG obtained at 2209, repeat is 90 rhythm is narrow complex irregularly irregular rhythm P waves are not present before each QRS this appears to be a new onset atrial fibrillation, QRS narrow at 96 QTc [address] elevations or depressions no evidence of ischemia or infarction. 06/24/20 23:32 Past Medical History Past Medical History: Hypertension Additional Past Medical History / Comment(s): back pain History of Any Multi-Drug Resistant Organisms: None Reported Past Surgical History: Orthopedic Surgery Additional Past Surgical History / Comment(s): left AKA Past Psychological History: No Psychological Hx Reported Smoking Status: Never smoker Past Alcohol Use History: None Reported Past Drug Use History: None Reported Course Vital Signs 06/24/20 06/24/20 06/24/20 21:56 22:10 22:25 Temperature 97.9 F 97.9 F Pulse Rate 76 77 84 Respiratory 18 18 18 Rate Blood Pressure 137/78 167/98 148/100 O2 Sat by Pulse 97 95 96 Oximetry 06/24/20 06/24/20 06/24/20 22:40 22:55 23:10 Temperature 98.0 F 98.0 F 98.0 F Pulse Rate 72 69 64 Respiratory 18 18 18 Rate Blood Pressure 139/80 137/92 141/90 O2 Sat by Pulse 97 97 97 Oximetry 06/24/20 23:40 Temperature 97.9 F Pulse Rate 68 Respiratory 16 Rate Blood Pressure 148/93 O2 Sat by Pulse 97 Oximetry Critical Care Time Critical Care Time: Yes Total Critical Care Time: 30 Critical Care Time: Critical Care Time 30 Critical care time was exclusive of separately billable procedures and treating other patients and teaching time. Critical care was necessary to treat or prevent imminent or life-threatening deterioration. Given the critical condition in which the patient arrived, the patient was immediately assessed by myself and the nurse, and cardiac monitoring initiated due to the potential for rapid decompensation of the patient's clinical condition. During the course of the patients stay, I spent a considerable amount of time at the bedside performing serial re-evaluations of the patient's hemodynamic and clinical status because of the recognized potential threat to life or limb in this condition. I then had a chance to review not only all of the available current laboratory and radiographic studies obtained today, but I also reviewed old records available to me at the time. Additionally, any ancillary information available including clinical veterinarian records were reviewed. Sequential vital signs were obtained. Disposition Clinical Impression: Cerebrovascular accident (CVA), Left acute arterial ischemic stroke, MCA (middle cerebral artery), New onset a-fib Disposition: ADMITTED IP TO THIS HOSP Condition: Serious
[2020-06-24 22:17] LABS: Basophils % (A) 0 %; Eosinophils # (A) 0.1 k/uL (0-0.7); Eosinophils % (A) 1 %; HCT 41.2 % (39.0-53.0); HGB 13.1 gm/dL (13.0-17.5); Lymphocytes # (A) 1.7 k/uL (1.0-4.8); Lymphocytes % (A) 24 %; MCH 28.6 pg (25.0-35.0); MCHC 31.8 g/dL (31.0-37.0); MCV 90.1 fL (80.0-100.0); Mean Platelet Volume 7.6; Monocytes # (A) 0.4 k/uL (0-1.0); Monocytes % (A) 5 %; Neutrophils # (A) 4.7 k/uL (1.3-7.7); Neutrophils % (A) 67 %; Platelet Count 190 k/uL (150-450); RBC 4.57 m/uL (4.30-5.90); RDW 13.2 % (11.5-15.5); WBC 6.9 k/uL (3.8-10.6)
[2020-06-24 22:20] LABS: Glucose,Whole Blood 109 mg/dL (75-99)
[2020-06-24 22:26] LABS: Albumin 4.9 g/dL (3.5-5.0); Calcium 9.6 mg/dL (8.4-10.2); INR 0.9 (<1.2); Potassium 4.4 mmol/L (3.5-5.1); Prothrombin Time 9.9 sec (9.0-12.0); Total Bilirubin 0.6 mg/dL (0.2-1.3); Total Protein 7.9 g/dL (6.3-8.2)
--- NOTE | 2020-06-24 22:32 | CT ---
EXAMINATION TYPE: CT brain wo con for TPA DATE OF EXAM: 06/24/2020 COMPARISON: None HISTORY: NEURO DEFICITS CT DLP: 1122.8 mGycm Automated exposure control for dose reduction was used. There is some cerebral cortical atrophy. There is no mass effect nor midline shift. There is no sign of intracranial hemorrhage. There is white matter hypodensity in both frontal lobes. The calvarium is intact. Skull base is intact. There is incomplete pneumatization left mastoid sinus. IMPRESSION: Mild atrophy. Chronic small vessel ischemia with old lacunar infarct in the anterior left internal ca psule. No acute intracranial abnormality.
--- NOTE | 2020-06-24 22:43 | CT ---
EXAMINATION TYPE: CT angio head neck DATE OF EXAM: 06/24/2020 COMPARISON: None HISTORY: neuro deficits CT DLP: 503.9 mGycm Automated exposure control for dose reduction was used. CONTRAST: Performed with IV Contrast, patient injected with 65 mL of Isovue 370. There are 3-D post processed images. Images obtained from the aortic arch to the vertex of the brain. There is normal branching pattern of the great vessels on the aortic arch. There is bilateral arteria l flow in the subclavian arteries. There is arterial flow in the common internal and external carotid arteries bilaterally. There is arterial flow in both vertebral arteries. There is some tortuosity of the right common carotid artery. There is approximate 50% diameter stenosis of the origin of the rig ht internal carotid artery due to diffuse plaque. There is significant plaque at the left carotid art gretchen bifurcation and more than 90% stenosis. There is arterial flow in the vertebrobasilar artery system. There is no evidence of carotid or verte bral artery aneurysm or dissection. There is arterial flow in the anterior middle and posterior cerebral arteries. I see no evidence of i ntracranial aneurysm or neovascularity. There is no mass effect. There is no evidence of intracranial arterial stenosis. There is normal contrast opacification of the venous sinuses. I see no evidence o f arterial dissection. 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 There is more than 90% stenosis origin left internal carotid artery. No intracranial angiographic abnormality.
--- NOTE | 2020-06-24 23:00 | XR ---
EXAMINATION TYPE: XR chest 2V DATE OF EXAM: 06/24/2020 COMPARISON: NONE HISTORY: Altered mental status TECHNIQUE: FINDINGS: There is no heart failure nor confluent pneumonic infiltrate. Costophrenic angles are clear . There are chest leads. Bony thorax is intact. IMPRESSION: No active cardiopulmonary disease. Normal heart.
[2020-06-24] MEDS ORDERED: TICAGRELOR 90 MG TAB PO STA (23:07)
[2020-06-24] MEDS ORDERED: ATORVASTATIN 80 MG TAB PO STA (23:07)
[2020-06-24] MEDS ORDERED: ASPIRIN 325 MG TAB PO STA (23:07)
[2020-06-24] MEDS ORDERED: NALOXONE 0.4 MG/ML 1 ML VIAL IV PRN (23:20)
[2020-06-24] MEDS: SODIUM CHLORIDE 0.9% 1,000 ML IV SCH (23:43)
[2020-06-25 00:21] LABS: Glucose,Whole Blood 123 mg/dL (75-99)
[2020-06-25 02:47] LABS: Appearance,Urine Clear (Clear); Bilirubin,Urine Negative (Negative); Blood,Urine Negative (Negative); Color,Urine Light Yellow; Glucose,Urine (UA) Negative (Negative); Ketones,Urine Negative (Negative); Leukocyte Esterase,Urine Negative (Negative); Nitrite,Urine Negative (Negative); Protein,Urine Trace (Negative); Specific Gravity,Urine 1.032 (1.001-1.035); Urobilinogen,Urine <2.0 mg/dL (<2.0)
[2020-06-25] MEDS: HYDROcodone/APAP 10-325MG 1 EACH TAB PO PRN ×5 (03:07→21:00)
[2020-06-25 04:18] LABS: Basophils % (A) 0 %; Eosinophils % (A) 1 %; HCT 39.9 % (39.0-53.0); HGB 13.2 gm/dL (13.0-17.5); Lymphocytes # (A) 1.2 k/uL (1.0-4.8); Lymphocytes % (A) 20 %; MCH 30.5 pg (25.0-35.0); MCV 92.4 fL (80.0-100.0); Mean Platelet Volume 7.4; Monocytes # (A) 0.2 k/uL (0-1.0); Monocytes % (A) 4 %; Neutrophils # (A) 4.4 k/uL (1.3-7.7); Neutrophils % (A) 73 %; Platelet Count 178 k/uL (150-450); RBC 4.32 m/uL (4.30-5.90); RDW 12.9 % (11.5-15.5)
[2020-06-25 04:27] LABS: Calcium 9.5 mg/dL (8.4-10.2); Potassium 4.3 mmol/L (3.5-5.1)
--- NOTE | 2020-06-25 07:12 | XR ---
EXAMINATION TYPE: XR chest 1V DATE OF EXAM: 06/25/2020 HISTORY: Shortness of breath. COMPARISON: 06/24/2020 TECHNIQUE: Single view of the chest is submitted. FINDINGS: Demonstrated are scattered senescent parenchymal change. There is no evidence for focal infiltrate. The heart is stable. Hilar and mediastinal structures are within normal limits. Degenerative changes are seen of the dorsal spine. IMPRESSION: 1. Chronic changes without evidence for acute pulmonary disease.
[2020-06-25] MEDS: ATORVASTATIN 40 MG TAB PO SCH (08:47)
[2020-06-25] MEDS: TICAGRELOR 90 MG TAB PO SCH ×2 (08:47→21:00)
[2020-06-25] MEDS: PANTOPRAZOLE 40 MG/10 ML VIAL IV SCH (08:51)
[2020-06-25] MEDS ORDERED: amLODIPine 10 MG TAB PO SCH (09:00)
[2020-06-25 09:22] LABS: Cholesterol 163 mg/dL (<200); HDL Cholesterol 43 mg/dL (40-60); LDL Cholesterol,Calculated 106 mg/dL (0-99); Triglycerides 70 mg/dL (<150)
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
--- NOTE | 2020-06-25 10:34 | US ---
EXAMINATION TYPE: US carotid duplex BILAT DATE OF EXAM: 06/25/2020 COMPARISON: CTA 06/24/2020 CLINICAL HISTORY: Carotid blockages . EXAM MEASUREMENTS: RIGHT: Peak Systolic Velocity (PSV) cm/sec ----- Right CCA: 91.5 ----- Right ICA: 103.1 ----- Right ECA: 101.6 ICA/CCA ratio: 1.1 RIGHT: End Diastole cm/sec ----- Right CCA: 18.8 ----- Right ICA: 20.2 ----- Right ECA: 8.6 LEFT: Peak Systolic Velocity (PSV) cm/sec ----- Left CCA: 63.6 ----- Left ICA: 357.9 ----- Left ECA: 172.5 ICA/CCA ratio: 5.6 LEFT: End Diastole cm/sec ----- Left CCA: 12.0 ----- Left ICA: 44.9 ----- Left ECA: 19.2 VERTEBRALS (direction of flow): Right Vertebral: Antegrade Left Vertebral: Antegrade Rhythm: Arrhythmia Significant stenosis left bulb/ICA with elevated velocities. IMPRESSION: Greater than 70% stenosis left ICA. Criteria for Assigning % of Stenosis / Diameter reduction (Estimation based on the indirect measurements of the internal carotid artery velocities (ICA PSV). 1. Normal (no stenosis)=ICA PSV < 125 cm/s: ratio < 2.0: ICA EDV<40 cm/s. 2. Less than 50% stenosis=ICA PSV < 125 cm/s: ratio < 2.0: ICA EDV<40 cm/s. 3. 50 to 69% stenosis=ICA PSV of 125 to 230 cm/s: ration 2.0 ? 4.0: ICA EDV 40-100 cm/s. 4. Greater than 70% stenosis to near occlusion= ICA PSV > 230 cm/s: ratio > 4.0: ICA EDV > 100 cm/s. 5. Near occlusion= ICA PSV velocities may be low or undetectable: variable ratio and ICA EDV. 6. Total occlusion=unable to detect flow.
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
[2020-06-25] MEDS: SODIUM CHLORIDE 0.9% 1,000 ML IV SCH (14:33)
[2020-06-25] MEDS ORDERED: HEPARIN SODIUM,PORCINE 5,000 UNIT/ML 1 ML VIAL IV PRN (15:00)
[2020-06-25] MEDS ORDERED: HEPARIN SODIUM,PORCINE 5,000 UNIT/ML 1 ML VIAL IV ONE (15:00)
[2020-06-25] MEDS ORDERED: HEPARIN SOD,PORK IN 0.45% NACL 25,000 UNIT in 0.45% NACL 1 250ML.BAG IV SCH (15:00)
[2020-06-25 15:38] LABS: Partial Thromboplastin Time 24.2 sec (22.0-30.0); Prothrombin Time 10.5 sec (9.0-12.0)
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
[2020-06-26] MEDS: SODIUM CHLORIDE 0.9% 1,000 ML IV SCH (02:25)
[2020-06-26 03:38] LABS: Basophils % (A) 0 %; Eosinophils # (A) 0.2 k/uL (0-0.7); Eosinophils % (A) 4 %; HCT 41.1 % (39.0-53.0); HGB 13.2 gm/dL (13.0-17.5); Lymphocytes # (A) 1.5 k/uL (1.0-4.8); Lymphocytes % (A) 26 %; MCH 30.4 pg (25.0-35.0); MCV 94.8 fL (80.0-100.0); Monocytes # (A) 0.3 k/uL (0-1.0); Monocytes % (A) 5 %; Neutrophils # (A) 3.7 k/uL (1.3-7.7); Neutrophils % (A) 62 %; Platelet Count 162 k/uL (150-450); RBC 4.33 m/uL (4.30-5.90)
[2020-06-26 03:47] LABS: Calcium 9.1 mg/dL (8.4-10.2)
[2020-06-26] MEDS: HYDROcodone/APAP 10-325MG 1 EACH TAB PO PRN ×2 (06:16→11:01)
[2020-06-26] MEDS: TICAGRELOR 90 MG TAB PO SCH (08:52)
[2020-06-26] MEDS: ATORVASTATIN 40 MG TAB PO SCH (08:52)
[2020-06-26] MEDS: PANTOPRAZOLE 40 MG/10 ML VIAL IV SCH (08:53)
[2020-06-26] MEDS ORDERED: amLODIPine 5 MG TAB PO SCH (09:00)
[2020-06-26] MEDS ORDERED: APIXABAN 5 MG TAB PO SCH (09:45)
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
--- NOTE | 2020-06-26 11:16 | ECHOF ---
Referral Reason:New onset a-fib MEASUREMENTS -------- HEIGHT: 182.9 cm WEIGHT: 83.9 kg BP: RVIDd: 3.1 cm (< 3.3) IVSd: 1.3 cm (0.6 - 1.1) LVIDd: 4.6 cm (3.9 - 5.3) LVPWd: 1.3 cm (0.6 - 1.1) IVSs: 1.4 cm LVIDs: 3.9 cm LVPWs: 1.2 cm LAESV Index (A-L): 24.56 ml/m Ao Diam: 3.4 cm (2.0 - 3.7) AV Cusp: 1.4 cm (1.5 - 2.6) MV EXCURSION: 21.757 mm (> 18.000) MV EF SLOPE: 107 mm/s (70 - 150) EPSS: 1.3 cm RAP: 5.00 mmHg RVSP: 28.14 mmHg FINDINGS -------- Atrial fibrillation. The rhythm appears to be atrial flutter. This was a technically adequate study. The left ventricular size is normal. Left ventricular wall thickness is normal. Overall left vent ricular systolic function is low-normal with, an EF between 50 - 55 %. Left ventricular fillimg pre ssure cannot be estimated due to Atrial fibrillation. The right ventricle is normal in size. Normal LA size by volume 22+/-6 ml/m2. The right atrial size is normal. There is mild aortic valve sclerosis. There is no evidence of aortic regurgitation. The mitral valve leaflets are mildly thickened. Mild mitral regurgitation is present. Mild tricuspid regurgitation present. Right ventricular systolic pressure is normal at < 35 mmHg. There is no pulmonic regurgitation present. The aortic root size is normal. There is no pericardial effusion. CONCLUSIONS -------- 1. Left ventricular wall thickness is normal. 2. Overall left ventricular systolic function is low-normal with, an EF between 50 - 55 %. 3. Left ventricular fillimg pressure cannot be estimated due to Atrial fibrillation. 4. Normal LA size by volume 22+/-6 ml/m2. 5. There is mild aortic valve sclerosis. 6. Mild mitral regurgitation is present. 7. Mild tricuspid regurgitation present. 8. There is no pericardial effusion. ELECT[employer]ICAL POWER STATION TECHNICIAN: Abby Buchanan RDCS
--- NOTE | 2020-06-26 11:17 | MR ---
MR brain without contrast HISTORY: Cerebral vascular accident Correlation to CT brain 06/24/2020 There are extensive white matter signal abnormalities, hyperintensity and inversion recovery T2-weigh margarita sequences in the periventricular, pericallosal, subcortical white matter. Small focus of restrict ed diffusion present within the right parietal lobe with an area of possible T2 shine through suggest s a small subacute infarct associated with an area of chronic infarct, axial image #18. There is giulia ical atrophy present. There are normal vascular flow voids. Corpus callosum, pituitary, cervical medu llary junction, cerebellopontine angles are within normal limits. Some inflammatory change present wi thin the mastoid air cells on the left, ethmoid air cells. The orbits show symmetric appearance. IMPRESSION: Age-related changes of atrophy and chronic small vessel ischemia, small focus of subacute infarction suspected right parietal lobe as described. Sinus disease, correlate for mastoiditis.
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
[2020-06-26 12:59] VITALS: TEMP 97.8
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
--- NOTE | 2020-06-26 15:25 | P.PN ---
Subjective Progress Note Date: 06/26/20 Patient was seen for a follow-up. Initial consultation performed by Dr. Mckinney yesterday. Please refer to her note for details. Patient came to the hospital for transient left facial droop, possible left- sided weakness although patient is not very sure. Patient has history of left above-knee amputation and has a prosthesis with which he walks fairly well. Patient's all neurological symptoms have resolved. Patient had an MRI of the brain performed today, which revealed age-related changes of atrophy and chronic small vessel ischemia, small focal focus of subacute infarction suspected right parietal lobe. Sinus disease, correlate for mastoiditis. CTA of head and neck showed 50% stenosis of the origin right ICA and more than 90% stenosis origin left ICA. Carotid Doppler revealed greater than 70% stenosis left ICA. 2-D echo showed left ventricular wall thickness is normal. EF is 50-55%. Normal left atrial size. Mild aortic valve sclerosis. Patient has been diagnosed with new onset atrial fibrillation, for which she has been started on Eliquis. Patient also has left ICA stenosis, for which vascular surgery is on board. Patient's lipid panel showed cholesterol 163, LDL 106, HDL 43 and triglycerides 70. Patient's home medications include Norvasc 10 mg, [place], vitamin D, potassium. Objective - Vital Signs Vital signs: Vital Signs Temp 97.8 F 06/26/20 12:00 Pulse 70 06/26/20 12:00 Resp 14 06/26/20 12:00 BP 136/86 06/26/20 12:00 Pulse Ox 97 06/26/20 12:00 Intake & Output 06/25/20 06/26/20 06/26/20 18:59 06:59 18:59 Intake Total 900 975 525 Output Total 1325 1770 300 Balance -425 -795 225 Weight 82.8 kg Intake: IV 900 975 525 0.9 NaCl- 900 975 525 Output: Urine 1325 1770 300 Other: Voiding Method Urinal Urinal Urinal # Voids 0 1 0 - Exam On examination patient is an elderly male, in no acute distress. He is fairly well oriented speech and language functions are normal. Attention and concentration fund of knowledge is adequate. He is hard of hearing. Patient's left pupil is oblong, and the right pupil is small, reactive. He has left ptosis, which is from old injury about couple years ago. Visual sánchez are full. Face is symmetric, tongue protrudes the midline. Palatal elevation sensation normal. On muscle strength testing there is no pronator drift and the strength is normal in arms and legs. He has left prosthetic left lower leg. Sensations are equal no ataxia for [id number] testing tone and bulk of muscles normal. Gait deferred but her nurse he has been walking in the hallway. - Labs CBC & Chem 7: 06/26/20 03:06 06/26/20 03:06 Labs: Abnormal Lab Results - Last 24 Hours (Table) 06/25/20 06/26/20 06/26/20 Range/Units 21:04 03:06 08:10 APTT 49.9 H 57.6 H (22.0-30.0) sec Chloride 112 H (98-107) mmol/L Carbon Dioxide 18 L (22-30) mmol/L Glucose 110 H (74-99) mg/dL Assessment and Plan Assessment: * Acute small right parietal CVA, likely embolic. Clinically patient had TIA. * New onset atrial fibrillation * Left ICA stenosis, severe degree, but clinically asymptomatic. * Hypertension * Hyperlipidemia Plan: * Agree with starting Apixaban for stroke prevention related to atrial fibrillation. * Suggest keeping patient on a single antiplatelet agent as well because of left ICA stenosis. * Continue high-dose statins. * Patient has left ICA stenosis, but is clinically asymptomatic at this time. Suggest outpatient left CEA. * Await hemoglobin A1c. * Neurologically clear for discharge, if cleared by cardiology and vascular surgery.
[2020-06-26 16:25] VITALS: BP 137/82; PULSE 68; RESP 17
[2020-06-27 01:21] LABS: Hemoglobin A1C 5.7 % (4.0-6.0)
[2020-06-27] MEDS ORDERED: PANTOPRAZOLE 40 MG TABLET PO SCH (07:30)
[2020-06-27] MEDS ORDERED: ASPIRIN 81 MG PO SCH (09:00)
--- NOTE | 2020-06-28 10:08 | CDI ---
Documentation Clarification Form Date: 06/28/2020 08:50:00 AM From: Bridgette Omalley Phone: If you have a question about this query, please contact Felisa Arrington, [facility] Call Center Representative at [phone] between 8am and 5pm. Admit Date: 06/24/2020 11:21:00 PM Patient Name: Anand Lucia Visit Number: [id number] Discharge Date: 06/26/2020 04:45:00 PM ATTENTION: The Clinical Documentation Specialists (CDI) and [facility] Coding Staff appreciate your assistance in clarifying documentation. Please respond to the clarification below the line at the bottom and electronically sign. The CDI & [facility] Coding staff will review the response and follow-up if needed. Please note: Queries are made part of the Legal Health Record. If you have any questions, please contact the author of this message via ITS. Dr. Cecy Kidd TIA is documented as a diagnosis in the DCS as possible CVA/TIA involving the MCA on the right side. Patient also has bilateral carotid stenosis 50% on Right and 90% on left. Please clarify if patient's carotid stenosis has caused the patient's weakness, slurred speech and facial droop. Patient history/risk factors: Left sided weaknes, HLD, slurred speech and facial droop. Clinical indicators: Carotid stenosis. CT head: Possible MCA CVA Carotid US: Significant stenosis left. Echo: Atrial fib Treatment: patient on antiplatelet In your professional opinion, please specify underlying etiology of the transient ischemic attack/CVA: Carotid Sinus Syncope Carotid Stenosis with infarct Carotid Stenosis w/o infarct Hemorrhagic Stroke (if know specify specific location) Ischemic Stroke (if know specify cause, specific vessel/location, and laterality): Sequelae of Cerebrovascular Disease (specify Type of Cerebrovascular Disease) Vertebo-Basilar Artery Syndrome Other (please specify): Etiology unknown or Unable to determine Carotid stenosis didn't cause his symptoms MTDD
== END 2020-06-26 16:45 | disposition home or self-care (01) | DRG 69 ==
LOC: EC 21:41 → 2SICU 23:21
PROVIDERS: ADMIT Internal Medicine; ATTEND Internal Medicine
DX: G45.9 Transient cerebral ischemic attack, unspecified (principal); I48.19 Other persistent atrial fibrillation; R47.01 Aphasia; G62.9 Polyneuropathy, unspecified; E78.5 Hyperlipidemia, unspecified; R29.704 NIHSS score 4; I10 Essential (primary) hypertension; H02.402 Unspecified ptosis of left eyelid; I08.3 Combined rheumatic disorders of mitral, aortic and tricuspid valves; I73.9 Peripheral vascular disease, unspecified; R29.810 Facial weakness; Z79.01 Long term (current) use of anticoagulants; Z79.02 Long term (current) use of antithrombotics/antiplatelets; Z79.899 Other long term (current) drug therapy; Z89.612 Acquired absence of left leg above knee; M79.651 Pain in right thigh; M54.9 Dorsalgia, unspecified; G89.29 Other chronic pain; Z98.42 Cataract extraction status, left eye; V89.2XXS Person injured in unspecified motor-vehicle accident, traffic, sequela
CPT/HCPCS: 36415; 70450; 70496; 70498; 70551; 71045; 71046; 80048; 80053; 80061; 81003; 83036; 83735; 84443; 84484; 85025; 85610; 85730; 93005; 93306; 93880; 99291

== ENCOUNTER 2021-09-23 07:45 | Emergency (ER) | payer OTHER, MEDICARE ==
[2021-09-23 07:52] VITALS: RESP 18
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
[2021-09-23] MEDS ORDERED: CASIRIVIMAB (REGN10933) (EUA) 600 MG, IMDEVIMAB (REGN10987) (EUA) 600 MG in SODIUM CHLO... IVPB ONE (09:30)
[2021-09-23] MEDS ORDERED: HYDROcodone/APAP 10-325MG 1 EACH TAB PO ONE (09:55)
[2021-09-23] MEDS ORDERED: SODIUM CHLORIDE 0.9% 50 ML IVPB ONE (10:00)
[2021-09-23 11:10] VITALS: BP 132/76; PULSE 80; TEMP 98
== END 2021-09-23 11:10 | disposition home or self-care (01) ==
LOC: SUPCPDRO 07:45 → EC 07:45
DX: U07.1 COVID-19 (principal); I10 Essential (primary) hypertension; Z86.73 Personal history of transient ischemic attack (TIA), and cerebral infarction without residual deficits; Z79.899 Other long term (current) drug therapy
CPT/HCPCS: 87635; 99283; Q0244

== ENCOUNTER 2021-11-01 16:12 | Emergency (ER) | payer OTHER, MEDICARE ==
[2021-11-01 16:27] VITALS: TEMP 97.3
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
[2021-11-01 17:26] LABS: Basophils % (A) 0 %; Eosinophils # (A) 0.1 k/uL (0-0.7); Eosinophils % (A) 2 %; HCT 32.2 % (39.0-53.0); HGB 10.7 gm/dL (13.0-17.5); Lymphocytes # (A) 1.4 k/uL (1.0-4.8); Lymphocytes % (A) 21 %; MCH 31.9 pg (25.0-35.0); MCHC 33.2 g/dL (31.0-37.0); MCV 96.3 fL (80.0-100.0); Mean Platelet Volume 8.6; Monocytes # (A) 0.3 k/uL (0-1.0); Monocytes % (A) 5 %; Neutrophils # (A) 4.6 k/uL (1.3-7.7); Neutrophils % (A) 70 %; Platelet Count 158 k/uL (150-450); RBC 3.34 m/uL (4.30-5.90); RDW 13.8 % (11.5-15.5); WBC 6.6 k/uL (3.8-10.6)
[2021-11-01 17:34] VITALS: PULSE 78
[2021-11-01 17:39] LABS: INR 1.1 (<1.2); Partial Thromboplastin Time 27.6 sec (22.0-30.0); Prothrombin Time 11.7 sec (9.0-12.0)
[2021-11-01 17:48] LABS: Calcium 9.2 mg/dL (8.4-10.2); Magnesium 2.3 mg/dL (1.6-2.3); Potassium 4.7 mmol/L (3.5-5.1); Total Bilirubin 0.9 mg/dL (0.2-1.3); Total Protein 6.9 g/dL (6.3-8.2)
[2021-11-01 18:33] VITALS: BP 127/81; RESP 16
== END 2021-11-01 18:33 | disposition home or self-care (01) ==
LOC: EC 16:12
DX: R79.9 Abnormal finding of blood chemistry, unspecified (principal); I10 Essential (primary) hypertension
CPT/HCPCS: 36415; 80053; 82272; 83605; 83735; 85025; 85610; 85730; 86850; 86900; 86901; 93005; 99284

== ENCOUNTER 2022-10-04 08:25 | Inpatient (IN) | payer OTHER, MEDICARE ==
[2022-10-04] MEDS ORDERED: FUROSEMIDE 10 MG/ML 4 ML VIAL IV STA (08:37)
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
[2022-10-04 08:55] LABS: Basophils % (A) 0 %; Eosinophils # (A) 0.1 k/uL (0-0.7); Eosinophils % (A) 1 %; HCT 31.6 % (39.0-53.0); HGB 10.3 gm/dL (13.0-17.5); Lymphocytes # (A) 0.9 k/uL (1.0-4.8); Lymphocytes % (A) 17 %; MCH 28.8 pg (25.0-35.0); MCHC 32.4 g/dL (31.0-37.0); MCV 88.8 fL (80.0-100.0); Mean Platelet Volume 8.7; Monocytes # (A) 0.3 k/uL (0-1.0); Monocytes % (A) 6 %; Neutrophils # (A) 3.9 k/uL (1.3-7.7); Neutrophils % (A) 73 %; Platelet Count 177 k/uL (150-450); RBC 3.56 m/uL (4.30-5.90); RDW 14.3 % (11.5-15.5); WBC 5.3 k/uL (3.8-10.6)
[2022-10-04 09:14] LABS: Albumin 4.2 g/dL (3.5-5.0); Calcium 8.8 mg/dL (8.4-10.2); Magnesium 2.1 mg/dL (1.6-2.3); Potassium 4.2 mmol/L (3.5-5.1); Total Bilirubin 1.2 mg/dL (0.2-1.3); Total Protein 7.7 g/dL (6.3-8.2)
[2022-10-04 09:35] LABS: INR 1.1 (<1.2); Partial Thromboplastin Time 31.2 sec (22.0-30.0); Prothrombin Time 11.5 sec (9.0-12.0)
--- NOTE | 2022-10-04 09:39 | XR ---
EXAMINATION TYPE: XR chest 2V DATE OF EXAM: 10/04/2022 9:33 AM COMPARISON: Chest radiographs from 12/21/2021 TECHNIQUE: XR chest 2V Frontal and lateral views of the chest. CLINICAL INDICATION:Male, 81 years old with history of difficulty breathing; FINDINGS: Lungs/Pleura: Elevation of the right hemidiaphragm with moderate right pleural effusion and associate d right basilar patchy airspace opacities. Small left pleural effusion. Pulmonary vascularity: Pulmonary vascular congestion. Heart/mediastinum: Cardiomediastinal silhouette is enlarged . Musculoskeletal: No acute osseous pathology. IMPRESSION: Cardiomegaly with bilateral pleural effusions and right basilar airspace opacity with pulmonary vascu lar congestion. Findings may relate to CHF exacerbation with superimposed infectious process is not e xcluded.
[2022-10-04] MEDS ORDERED: ACETAMINOPHEN TAB 325 MG TAB PO PRN (10:14)
[2022-10-04] MEDS ORDERED: NALOXONE 0.4 MG/ML 1 ML VIAL IV PRN (10:14)
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
[2022-10-04] MEDS: HYDROcodone/APAP 10-325MG 1 EACH TAB PO PRN (20:00)
[2022-10-04] MEDS: APIXABAN 5 MG TAB PO SCH (20:00)
[2022-10-04] MEDS: FUROSEMIDE 10 MG/ML 4 ML VIAL IV SCH (20:01)
[2022-10-05] MEDS: HYDROcodone/APAP 10-325MG 1 EACH TAB PO PRN ×3 (02:01→14:38)
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
[2022-10-05 08:40] VITALS: BP 111/55; PULSE 55; RESP 18
[2022-10-05 08:41] VITALS: TEMP 97.6
[2022-10-05] MEDS: FUROSEMIDE 10 MG/ML 4 ML VIAL IV SCH (08:41)
[2022-10-05] MEDS: APIXABAN 5 MG TAB PO SCH (08:42)
[2022-10-05] MEDS ORDERED: amLODIPine 10 MG TAB PO SCH (09:00)
[2022-10-05] MEDS ORDERED: ATORVASTATIN 40 MG TAB PO SCH (09:00)
[2022-10-05 10:01] LABS: Calcium 8.7 mg/dL (8.4-10.2); Potassium 3.4 mmol/L (3.5-5.1)
[2022-10-05 10:35] VITALS: BMI 22.1
[2022-10-05] MEDS ORDERED: POTASSIUM CHLORIDE ER 20 MEQ TAB.ER PO STA (12:14)
--- NOTE | 2022-10-05 12:29 | P.DS ---
Providers Date of admission: 10/04/22 10:13 Expected date of discharge: 10/05/22 Attending physician: Nick Rachel MD Consults: 10/04/22 17:18 Consult Physician Routine Consulting Provider: Edgar Luke Consult Reason/Comments: CHF exacerbation Do you want consulting provider notified?: Yes Primary care physician: [facility] Course: Patient is a 81-year-old male with PMH of atrial fibrillation, left AKA, hypertension, dyslipidemia presents ED for shortness of breath has been getting worse over the past 2 days. Patient also reports extensive swelling in his right lower extremity. He denies any orthopnea. These symptoms prompted him to come to the ED. He denies any headache, nausea or vomiting, fever or chills, cough, chest pain, palpitations, changes in urination or bowel habits. No changes in appetite or weight. He denies any dizziness, numbness/weakness/tingling of the extremities. In the ED, his vital signs are stable. CBC showed hemoglobin of 10.3. INR was 1.1. D-dimer was 6.1. CMP showed BUN of 24 and glucose 117. Lactic acid negative. Troponin was 0.028, EKG showing atrial fibrillation. BNP 4260, chest x-ray show cardiomegaly with bilateral pleural effusion with pulmonary vascular congestion. Patient is admitted for CHF exacerbation. Patient was diuresed with Lasix 40 mg IV twice a day. He was negative fluid balance of 2.5 L. He lost around 7 kg. Cardiology was consulted and recommended repeat echocardiogram which was done but not read at the time of discharge. Echocardiogram from December 2021 shows EF 40-45% with mild concentric LVH. Patient was seen and examined. No acute events overnight. Patient is adamant about wanting to go home. Patient states that he feels back to baseline. Telemetry noted frequent PVCs and pauses. Due to this, he will not be started on a beta marissa. His amlodipine will be decreased to 5 mg by mouth daily. Lisinopril 2.5 mg by mouth will be added. Aldactone was held due to acute kidney injury. He will need an ischemic workup in the outpatient setting. He is advised follow-up with his PCP within 1-2 days of discharge. He is advised follow-up with cardiology within 1 week of discharge. Patient verbalized understanding of the plan. He was also noted to have an elevated d-dimer of 6.01. Patient adamantly refused any further workup including CTA chest to rule out PE. Patient urged the importance of routine cancer screening including colonoscopy with regard to his anemia. Pertinent studies include chest x-ray, echocardiogram. General: non toxic, no distress, appears at stated age Derm: warm, dry Head: atraumatic, normocephalic, symmetric Eyes: EOMI, no lid lag, anicteric sclera Mouth: no lip lesion, mucus membranes moist Cardiovascular: S1S2 reg, no murmur, positive posterior tibial pulse bilateral, Lungs: Decreased breath sounds bilateral, no rhonchi, no rales , no accessory muscle use Abdominal: soft, nontender to palpation, no guarding, no appreciable organomegaly Ext: no gross muscle atrophy, 1+ pitting right lower extremity edema, no contractures, left AKA Neuro: no focal neuro deficits Psych: Alert, oriented, appropriate affect Discharge diagnosis: #Acute on chronic diastolic and systolic CHF exacerbation #Elevated d-dimer #Normocytic anemia #Acute kidney injury Chronic conditions: Atrial fibrillation, hypertension, dyslipidemia This complex discharge took 35 minutes to complete. Patient Condition at Discharge: Stable Plan - Discharge Summary New Discharge Prescriptions: New lisinopriL [Zestril] 2.5 mg PO DAILY #30 tab amLODIPine [Norvasc] 5 mg PO DAILY #30 tab Continue Hydrocodone/Acetaminophen [[place] 10-325] 2 tab PO QID Potassium Chloride ER [K-Dur 10] 10 meq PO DAILY Apixaban [Eliquis] 5 mg PO BID #60 tab Atorvastatin [Lipitor] 40 mg PO DAILY Cholecalciferol [Vitamin D3 (25 Mcg = 1000 Iu)] 25 mcg PO DAILY Furosemide [Lasix] 40 mg PO DAILY Discontinued amLODIPine [Norvasc] 10 mg PO DAILY Discharge Medication List Hydrocodone/Acetaminophen [[place] 10-325] 2 tab PO QID 04/10/17 [History] Potassium Chloride ER [K-Dur 10] 10 meq PO DAILY 06/24/20 [History] Apixaban [Eliquis] 5 mg PO BID #60 tab 06/26/20 [Rx] Atorvastatin [Lipitor] 40 mg PO DAILY 09/23/21 [History] Cholecalciferol [Vitamin D3 (25 Mcg = 1000 Iu)] 25 mcg PO DAILY 10/04/22 [History] Furosemide [Lasix] 40 mg PO DAILY 10/04/22 [History] amLODIPine [Norvasc] 5 mg PO DAILY #30 tab 10/05/22 [Rx] lisinopriL [Zestril] 2.5 mg PO DAILY #30 tab 10/05/22 [Rx] Follow up Appointment(s)/Referral(s): Edgar Luke MD [STAFF PHYSICIAN] - 1 Week [facility],Clinic [Primary Care Provider] - 1-2 days Activity/Diet/Wound Care/Special Instructions: Diet: Fluid restriction to 1.5L daily. Low salt. Cardiac Follow up PCP within 1-2 days of discharge. Follow up with Cardiology within 1 week of discharge. Take all medications as advised. Come back to the ED for worsening chest pain, shortness of breath, lightheadedness, palpitations. Discharge Disposition: HOME SELF-CARE
[2022-10-06] MEDS ORDERED: amLODIPine 5 MG TAB PO SCH (09:00)
--- NOTE | 2022-10-06 11:18 | CA ---
Transthoracic Echo Report Name: Anand Lucia Age: 81 Gender: M : 1940 Exam Date: 10/05/2022 09:15 Exam Location: [facility] Ht (in): 72 Wt (lb): 162 Ordering Physician: Edgar Luke MD ([id number]) Attending/Referring Phys: Dry End Operator Hanna Jeff RDCS Procedure CPT: Indications: chf Cardiac Hx: Technical Quality: Fair Contrast 1: Total Dose (mL): Contrast 2: Total Dose (mL): MEASUREMENTS (Male / Female) Normal Values 2D ECHO LV Diastolic Diameter PLAX 5.1 cm 4.2 - 5.9 / 3.9 - 5.3 cm LV Systolic Diameter PLAX 2.9 cm IVS Diastolic Thickness 1.5 cm 0.6 - 1.0 / 0.6 - 0.9 cm LVPW Diastolic Thickness 1.3 cm 0.6 - 1.0 / 0.6 - 0.9 cm LV Relative Wall Thickness 0.6 RV Internal Dim ED PLAX 4.2 cm LA Volume 112.0 cm??? 18 - 58 / 22 - 52 cm??? M-MODE Aortic Root Diameter MM 3.1 cm LA Systolic Diameter MM 4.9 cm LA Ao Ratio MM 1.6 AV Cusp Separation MM 1.8 cm DOPPLER AV Peak Velocity 171.6 cm/s AV Peak Gradient 11.8 mmHg AV Mean Velocity 122.4 cm/s AV Mean Gradient 6.6 mmHg AV Velocity Time Integral 34.9 cm LVOT Peak Velocity 101.4 cm/s LVOT Peak Gradient 4.1 mmHg TR Peak Velocity 284.3 cm/s TR Peak Gradient 32.3 mmHg Right Ventricular Systolic Press 36.9 mmHg FINDINGS Left Ventricle Moderately increased left ventricular wall thickness. Normal left ventricular systolic function with no obvious regional wall motion abnormalities. Left ventricular cavity size normal. Left ventricular ejection fraction is estimated at 50-55 %. Right Ventricle Moderate right ventricular dilatation. Mild pulmonary hypertension. Right Atrium Moderate right atrial dilatation. Left Atrium Severely increased left atrial volume. Moderately increased left atrial area. Mitral Valve Mild thickening/calcification of the mitral valve leaflets. Mild mitral annular calcification. Mild mitral regurgitation. Aortic Valve Trileaflet aortic valve. No aortic valve stenosis or regurgitation. Tricuspid Valve Moderate tricuspid regurgitation. Pulmonic Valve Trace pulmonic regurgitation. Pericardium No pericardial effusion. Aorta Normal size aortic root and proximal ascending aorta. CONCLUSIONS Normal biventricular dimension and systolic function Severe biatrial enlargement Mitral annular calcification with mild to moderate mitral regurgitation Mild pulmonary hypertension Moderate tricuspid regurgitation Previewed by: Dr. Edgar Luke MD (Electronically Signed) Final Date: 06 October 2022 11:17
== END 2022-10-05 18:16 | disposition home or self-care (01) | DRG 291 ==
LOC: EC 08:25 → 3SCARD 10:13
PROVIDERS: ADMIT Student in an Organized Health Care Education/Training Program; ATTEND Student in an Organized Health Care Education/Training Program
DX: I11.0 Hypertensive heart disease with heart failure (principal); I50.43 Acute on chronic combined systolic (congestive) and diastolic (congestive) heart failure; I48.21 Permanent atrial fibrillation; N17.9 Acute kidney failure, unspecified; I42.9 Cardiomyopathy, unspecified; D64.9 Anemia, unspecified; E78.5 Hyperlipidemia, unspecified; I08.1 Rheumatic disorders of both mitral and tricuspid valves; I27.20 Pulmonary hypertension, unspecified; R09.02 Hypoxemia; I49.3 Ventricular premature depolarization; Z89.612 Acquired absence of left leg above knee; Z79.01 Long term (current) use of anticoagulants; Z79.899 Other long term (current) drug therapy; Z86.16 Personal history of COVID-19; Z86.73 Personal history of transient ischemic attack (TIA), and cerebral infarction without residual deficits; Z28.310 Unvaccinated for COVID-19; R79.1 Abnormal coagulation profile; Z88.5 Allergy status to narcotic agent
CPT/HCPCS: 36415; 71046; 80048; 80053; 83605; 83735; 83880; 84484; 85025; 85379; 85610; 85730; 93005; 93306; 96374; 99285

== ENCOUNTER 2023-01-02 15:11 | Emergency (ER) | payer OTHER, MEDICARE ==
[2023-01-02] MEDS ORDERED: DEXAMETHASONE SOD PHOSPHATE 10 MG/ML 1 ML VIAL IVP STA (16:11)
[2023-01-02] MEDS ORDERED: SODIUM CHLORIDE 0.9% 1,000 ML IV STA (16:11)
[2023-01-02] MEDS ORDERED: KETOROLAC 15 MG/ML 1 ML VIAL IVP STA (16:11)
[2023-01-02] MEDS ORDERED: TOBRAMYCIN 0.3% OPHTH DROPS 5 ML BTL RIGHT EYE STA (16:13)
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
[2023-01-02 16:53] LABS: Basophils % (A) 0 %; Eosinophils % (A) 1 %; HCT 30.1 % (39.0-53.0); HGB 9.7 gm/dL (13.0-17.5); Lymphocytes # (A) 0.6 k/uL (1.0-4.8); Lymphocytes % (A) 13 %; MCH 27.7 pg (25.0-35.0); MCHC 32.2 g/dL (31.0-37.0); MCV 86.1 fL (80.0-100.0); Monocytes # (A) 0.3 k/uL (0-1.0); Monocytes % (A) 7 %; Neutrophils # (A) 3.5 k/uL (1.3-7.7); Neutrophils % (A) 77 %; Platelet Count 203 k/uL (150-450); RDW 14.6 % (11.5-15.5); WBC 4.5 k/uL (3.8-10.6)
[2023-01-02] MEDS ORDERED: FLUORESCEIN STRIPS 1 MG STRIP RIGHT EYE STA (17:17)
[2023-01-02 17:19] LABS: ALT 13 U/L (4-49); AST 25 U/L (17-59); African American GFR (CKD) >90 (>60 ml/min/1.73 sqM); Albumin 3.6 g/dL (3.5-5.0); Alkaline Phosphatase 195 U/L (38-126); Anion Gap 10 mmol/L; Blood Urea Nitrogen 18 mg/dL (9-20); Calcium 8.4 mg/dL (8.4-10.2); Carbon Dioxide 22 mmol/L (22-30); Chloride 104 mmol/L (98-107); Glucose 112 mg/dL (74-99); Magnesium 1.9 mg/dL (1.6-2.3); Non-African American GFR(CKD) 85 (>60 ml/min/1.73 sqM); Phosphorus 3.1 mg/dL (2.5-4.5); Sodium 136 mmol/L (137-145); Total Bilirubin 1.3 mg/dL (0.2-1.3); Total Protein 7.2 g/dL (6.3-8.2)
[2023-01-02 17:50] LABS: Potassium 4.8 mmol/L (3.5-5.1)
[2023-01-02 18:51] VITALS: BP 136/78; PULSE 77; RESP 18; TEMP 98.3
[2023-01-02 19:05] LABS: C Reactive Protein 13.4 mg/dL (<1.0)
== END 2023-01-02 18:51 | disposition home or self-care (01) ==
LOC: EC 15:11
DX: S05.01XA Injury of conjunctiva and corneal abrasion without foreign body, right eye, initial encounter (principal); I48.91 Unspecified atrial fibrillation; E78.5 Hyperlipidemia, unspecified; I10 Essential (primary) hypertension; Z86.73 Personal history of transient ischemic attack (TIA), and cerebral infarction without residual deficits; Z86.16 Personal history of COVID-19; Z87.891 Personal history of nicotine dependence; Z88.5 Allergy status to narcotic agent; Z88.6 Allergy status to analgesic agent; Z79.899 Other long term (current) drug therapy; X58.XXXA Exposure to other specified factors, initial encounter
CPT/HCPCS: 36415; 80053; 85652; 83735; 84100; 85025; 86140; 99283; 96374; 96375; J1100; J1885

== ENCOUNTER 2023-02-19 11:35 | Emergency (ER) | payer OTHER, MEDICARE ==
[2023-02-19 11:44] VITALS: TEMP 98.8
[2023-02-19] MEDS ORDERED: ACETAMINOPHEN IV (For NPO) 1,000 MG in EMPTY BAG 1 BAG IVPB STA (12:37)
[2023-02-19 13:21] VITALS: BP 136/92; PULSE 65; RESP 18
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
== END 2023-02-19 13:45 | disposition home or self-care (01) ==
LOC: EC 11:35
DX: H40.9 Unspecified glaucoma (principal); I10 Essential (primary) hypertension; I48.91 Unspecified atrial fibrillation; E78.5 Hyperlipidemia, unspecified; Z79.01 Long term (current) use of anticoagulants; Z79.899 Other long term (current) drug therapy; Z86.16 Personal history of COVID-19; Z87.891 Personal history of nicotine dependence; Z88.5 Allergy status to narcotic agent; Z88.6 Allergy status to analgesic agent
CPT/HCPCS: 99284; 96374; J0131

== ENCOUNTER 2023-03-10 15:13 | Inpatient (IN) | payer OTHER, MEDICARE ==
[2023-03-10] MEDS ORDERED: SODIUM CHLORIDE 0.9% 500 ML 500 ML IV STA (16:45)
[2023-03-10] MEDS ORDERED: ONDANSETRON 4 MG/2 ML VIAL IVP STA (16:45)
[2023-03-10] MEDS ORDERED: MORPHINE SULFATE 4 MG/ML SYRINGE IV STA (16:45)
[2023-03-10 17:03] LABS: Anisocytosis Slight; Basophils % (A) 0 %; Eosinophils # (A) 0.1 k/uL (0-0.7); Eosinophils % (A) 2 %; HGB 11.2 gm/dL (13.0-17.5); Hypochromasia Slight; Lymphocytes # (A) 1.1 k/uL (1.0-4.8); Lymphocytes % (A) 20 %; MCH 28.3 pg (25.0-35.0); MCV 88.5 fL (80.0-100.0); Mean Platelet Volume 8.5; Monocytes # (A) 0.3 k/uL (0-1.0); Monocytes % (A) 6 %; Neutrophils # (A) 3.7 k/uL (1.3-7.7); Neutrophils % (A) 71 %; Platelet Count 231 k/uL (150-450); RBC 3.96 m/uL (4.30-5.90); WBC 5.3 k/uL (3.8-10.6)
[2023-03-10 17:10] LABS: ALT 17 U/L (4-49); AST 26 U/L (17-59); African American GFR (CKD) >90 (>60 ml/min/1.73 sqM); Albumin 3.7 g/dL (3.5-5.0); Alkaline Phosphatase 192 U/L (38-126); Anion Gap 10 mmol/L; Blood Urea Nitrogen 21 mg/dL (9-20); Calcium 9.2 mg/dL (8.4-10.2); Carbon Dioxide 21 mmol/L (22-30); Chloride 108 mmol/L (98-107); Magnesium 2.1 mg/dL (1.6-2.3); Non-African American GFR(CKD) 79 (>60 ml/min/1.73 sqM); Potassium 4.8 mmol/L (3.5-5.1); Sodium 139 mmol/L (137-145); Total Protein 7.4 g/dL (6.3-8.2)
[2023-03-10 17:12] LABS: Partial Thromboplastin Time 25.4 sec (22.0-30.0); Prothrombin Time 10.9 sec (9.0-12.0)
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
--- NOTE | 2023-03-10 17:25 | XR ---
EXAMINATION TYPE: XR chest 2V DATE OF EXAM: 03/10/2023 COMPARISON: 10/04/2022 HISTORY: Shortness of breath TECHNIQUE: Frontal and lateral views of the chest are obtained. FINDINGS: Scattered senescent parenchymal changes noted. Hyperinflation compatible with COPD. No evidence for infiltrate. Right basilar effusion persists although is smaller in size. Suspect unde rlying atelectasis. The remainder of the lungs are clear. Heart size is stable. Mediastinal structures are stable and grossly unremarkable. No evidence for hilar prominence. Degenerative changes dorsal spine. IMPRESSION: 1. Right basilar effusion persists although is smaller in size. Suspect underlying atelectasis.
[2023-03-10 17:30] LABS: Glucose 102 mg/dL (74-99)
--- NOTE | 2023-03-10 17:32 | CT ---
EXAMINATION TYPE: CT brain wo con DATE OF EXAM: 03/10/2023 COMPARISON: 06/24/2020 HISTORY: fall CT DLP: 1385.[address] of the brain was performed. The ventricles, basal cisterns and sulci overlying the cerebral convexities demonstrate mild enlargem ent. There is no evidence for intracranial hemorrhage or sulcal effacement. There is decreased attenuation about the periventricular white matter and deep white matter of both c erebral hemispheres, compatible with chronic small vessel ischemia. Differential diagnosis does inclu de demyelination. No mass effects are seen.No midline shift. Osseous calvarium is intact. If symptoms persist consider MRI. IMPRESSION: 1. Age related atrophic and chronic small vessel ischemic change without acute intracranial process s een at this time.
--- NOTE | 2023-03-10 17:36 | CT ---
EXAMINATION TYPE: CT facial bones wo con DATE OF EXAM: 03/10/2023 COMPARISON: None HISTORY: fall CT DLP: 1385.[address] of the facial bones was performed in the axial and coronal planes. Bone and soft tissu e window settings are submitted. No significant soft tissue swelling is appreciated. I do not see evidence for displaced facial bone fracture or depressed facial bone fracture. The globes are intact. There is evidence of scleral buckle procedure. Hounsfield unit density of the left globe is in the range of 10-20 while within the right globe the Hounsfield unit ranges between 35 and 50. I cannot exclude intra-global hemorrhage. No evidence for retinal hemorrhage. Paranasal sinuses are well-aerated. IMPRESSION: 1. Hemorrhage within the right globe is difficult to exclude given increased density relative to the left globe.
[2023-03-10 18:07] LABS: Appearance,Urine Clear (Clear); Bilirubin,Urine Negative (Negative); Blood,Urine Negative (Negative); Color,Urine Yellow; Glucose,Urine (UA) Negative (Negative); Ketones,Urine Negative (Negative); Leukocyte Esterase,Urine Negative (Negative); Nitrite,Urine Negative (Negative); Protein,Urine Negative (Negative); Specific Gravity,Urine 1.015 (1.001-1.035)
[2023-03-10] MEDS ORDERED: SODIUM CHLORIDE 0.9% 1,000 ML IV STA (18:40)
[2023-03-10] MEDS ORDERED: ONDANSETRON 4 MG/2 ML VIAL IVP PRN (18:41)
[2023-03-10] MEDS ORDERED: NALOXONE 0.4 MG/ML 1 ML VIAL IV PRN (18:41)
[2023-03-10] MEDS: ACETAMINOPHEN TAB 325 MG TAB PO PRN (19:58)
[2023-03-10] MEDS ORDERED: NON FORMULARY DRUG (Brinzolamide/Brimonidine Tart [Simbrinza 1%-0.2% Eye Drops] 8 ML Ml) BOTH EYES SCH (22:00)
[2023-03-10] MEDS: acetaZOLAMIDE 250 MG TAB PO SCH (22:39)
[2023-03-10] MEDS: HYDROcodone/APAP 10-325MG 1 EACH TAB PO SCH (22:39)
[2023-03-10] MEDS: APIXABAN 5 MG TAB PO SCH (22:39)
[2023-03-10] MEDS: DORZOLAMIDE HCL 2% DROPS 10 ML BTL BOTH EYES SCH (22:49)
[2023-03-10] MEDS: TIMOLOL 0.5% OPHTH DROPS 5 ML BTL RIGHT EYE SCH (22:50)
[2023-03-10] MEDS: BRIMONIDINE TARTRATE 0.2% DROPS 5 ML BTL BOTH EYES SCH (22:50)
[2023-03-10] MEDS: OFLOXACIN 0.3% OPHTH DROPS 5 ML BOTTLE RIGHT EYE SCH (22:51)
[2023-03-10] MEDS: prednisoLONE ACETATE 1% OPHTH DROPS 5 ML BTL RIGHT EYE SCH ×2 (22:52→23:00)
[2023-03-10] MEDS: ATROPINE OPHTH SOLN 1% 5ML BTL RIGHT EYE SCH (22:53)
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
[2023-03-11] MEDS ORDERED: DEXTROSE 50% SYRINGE 50 ML IVP PRN ×2 (02:11)
[2023-03-11] MEDS: prednisoLONE ACETATE 1% OPHTH DROPS 5 ML BTL RIGHT EYE SCH ×6 (03:31→23:54)
[2023-03-11] MEDS: ACETAMINOPHEN TAB 325 MG TAB PO PRN (03:53)
[2023-03-11] MEDS: INSULIN ASPART (NovoLOG) 100 UNIT/ML VIAL SQ SCH ×4 (09:06→20:51)
[2023-03-11] MEDS: HYDROcodone/APAP 10-325MG 1 EACH TAB PO SCH ×4 (09:06→21:30)
[2023-03-11] MEDS: acetaZOLAMIDE 250 MG TAB PO SCH ×2 (09:06→21:30)
[2023-03-11] MEDS: amLODIPine 5 MG TAB PO SCH (09:07)
[2023-03-11] MEDS: FUROSEMIDE 40 MG TAB PO SCH (09:07)
[2023-03-11] MEDS: ATORVASTATIN 40 MG TAB PO SCH (09:07)
[2023-03-11] MEDS: POTASSIUM CHLORIDE ER 10 MEQ TAB.ER.PRT PO SCH (09:07)
[2023-03-11] MEDS: APIXABAN 5 MG TAB PO SCH ×2 (09:09→21:29)
[2023-03-11] MEDS: DORZOLAMIDE HCL 2% DROPS 10 ML BTL BOTH EYES SCH ×3 (09:10→21:32)
[2023-03-11] MEDS: ATROPINE OPHTH SOLN 1% 5ML BTL RIGHT EYE SCH ×2 (09:11→21:30)
[2023-03-11] MEDS: BRIMONIDINE TARTRATE 0.2% DROPS 5 ML BTL BOTH EYES SCH ×3 (09:11→21:32)
[2023-03-11] MEDS: OFLOXACIN 0.3% OPHTH DROPS 5 ML BOTTLE RIGHT EYE SCH ×3 (09:11→21:31)
[2023-03-11] MEDS: TIMOLOL 0.5% OPHTH DROPS 5 ML BTL RIGHT EYE SCH ×2 (09:12→21:30)
[2023-03-11 11:46] LABS: Glucose,Whole Blood 102 mg/dL (70-110)
[2023-03-11] MEDS ORDERED: LACTATED RINGERS 1,000 ML IV SCH (16:00)
[2023-03-11] MEDS ORDERED: ARTIFICIAL TEARS-HYPROMELLOSE DROPS 15 ML BTL BOTH EYES PRN (16:01)
[2023-03-11] MEDS ORDERED: TROPICAMIDE 1% OPHTH DROPS 2 ML BTL BOTH EYES ONE (16:01)
[2023-03-11] MEDS ORDERED: PROPARACAINE 0.5% OPHTH DROPS 15 ML BTL BOTH EYES STA (16:01)
--- NOTE | 2023-03-11 16:01 | P.PN ---
Subjective Progress Note Date: 03/11/23 No new copmlaints today. Gen: awake, alert HEENT: normocephalic, atraumatic, good hearing acuity, moist mucous membranes Resp: good air exchange, breathing comfortably with no accessory muscle use CVS: good distal perfusion x 4, GI: soft, NTTP, ND : no SPT, no CVAT, swanson catheter not present MSK: no pitting edema, no clubbing Neuro: non-focal, moving all extremities Psych: cooperative, euthymic mood Hospital course: 82 year old male with difficutlies with ADLS progressively getting more diffi cult over past 3 weeks since his failed cataract surgery on the RIght eye. In the emergency room, patient was afebrile, 119/65, heart rate 72, 99% on room air. CBC showed mild anemia down to 11.2, otherwise unremarkable. Basic metabolic panel showed chloride 108, CO2 of 21, BUN of 21. Liver function tests showed elevated alkaline phosphatase of 192, otherwise unremarkable. TSH is 1.54. Troponin was 0.035 then trended to 0.038. Coags are unremarkable. UA is unremarkable. Informs a, B, RSV, Covid were negative. Chest x-ray showed right basilar effusion persistent although smaller in size. Brain CT was significant for age-related atrophic and chronic small vessel ischemic changes. Face CT showed hemorrhage within the right globe given increased density relative to the left globe. EKG showed atrial fibrillation with rate controlled. Case was discussed with emergency room provider and patient was in the hospital for further evaluation. Intraglobal hemorrhage Status post cataract surgery -Case discussed with the ophthalmology service, they will come and consult on the patient today -Resume atropine eyedrops, brimonidine, dorzolamide, prednisone, ofloxacin -Continue acetazolamide Paroxysmal afib on eliquis resume eliquis Hypertension resume amlodipine and lisinopril Patient is a no code Objective - Vital Signs Vital signs: Vital Signs Temp 98.5 F 03/11/23 07:40 Pulse 78 03/11/23 11:18 Resp 16 03/11/23 11:18 BP 102/63 03/11/23 11:18 Pulse Ox 95 03/11/23 11:18 FiO2 Intake & Output 03/10/23 03/11/23 03/11/23 18:59 06:59 18:59 Intake Total 240 Output Total 850 Balance -610 Weight 77.111 kg 77.111 kg Intake: Oral 240 Output: Urine 850 Other: Voiding Method Urinal Diaper # Voids 1 - Labs CBC & Chem 7: 03/10/23 16:45 03/10/23 16:45 Labs: Abnormal Lab Results - Last 24 Hours (Table) 03/10/23 03/10/23 03/10/23 Range/Units 16:45 16:45 16:45 RBC 3.96 L (4.30-5.90) m/uL Hgb 11.2 L (13.0-17.5) gm/dL Hct 35.0 L (39.0-53.0) % RDW 17.0 H (11.5-15.5) % Chloride 108 H (98-107) mmol/L Carbon Dioxide 21 L (22-30) mmol/L BUN 21 H (9-20) mg/dL Glucose 102 H (74-99) mg/dL Alkaline Phosphatase 192 H (38-126) U/L Troponin I 0.035 H* (0.000-0.034) ng/mL 03/11/23 Range/Units 00:16 RBC (4.30-5.90) m/uL Hgb (13.0-17.5) gm/dL Hct (39.0-53.0) % RDW (11.5-15.5) % Chloride (98-107) mmol/L Carbon Dioxide (22-30) mmol/L BUN (9-20) mg/dL Glucose (74-99) mg/dL Alkaline Phosphatase (38-126) U/L Troponin I 0.038 H* (0.000-0.034) ng/mL
[2023-03-11] MEDS ORDERED: PHENYLEPHRINE 2.5% OPHTH DRP 2ML BOTH EYES SCH (16:15)
[2023-03-11 16:50] LABS: Glucose,Whole Blood 126 mg/dL (70-110)
--- NOTE | 2023-03-11 19:11 | P.CON ---
Consult Note - . Consult date: 03/11/23 Assessment/Plan:: This is an 85 y/o male who presented to the ER last evening due to several complaints. He was seen yesterday by his travel administrator, who had recommended the ER visit. This consultation is related to his discomfort and poor vision for the right eye. His story, is somewhat vague, however, he admitted to having poor vision in the right since prior to the cataract operation about 2 weeks ago. He admits to possible trauma to the eye when attempting to put on his glasses. He cannot state the condition of the eye at the time of his initial presentation to his travel administrator, however, it was determined that he needed cataract surgery to begin the repair process. 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 He had undergone cataract surgery about 13 years ago on the left eye, and vision has remained good, since that operation, and he rarely wears glasses. His current problem is the vision in the right eye is poor and is uncomfortable and he feels is not improving at the rate he had expected, but admitted that Dr. Tolentino, who performed the cataract surgery, has already raised some concerns about the return of vision to the eye following the trauma and subsequent surgery. Mr. Lucia is already on heavy glaucoma treatment with brimonidine 0.2% 1 drop in EACH eye 3 times daily, on dorzolamide 2% 1 drop EACH eye 3 times daily, probably as maintenance for glaucoma in each eye. Additionally, he's had added timolol 0.5% 1 drops in RIGHT eye 2 times daily, Atropine 1% 1 drop in RIGHT eye twice daily, and guessing that the acetazolemide 250 mg orally twice daily are a ll post operative as well. I am not sure what is follow up status is at this interview. Va: w/o is NLP OD, 20/20 OS IOP: 30 mm Hg OD, 13 mm Hg OS @ 1715 hrs Pupils: (+) APD OD, poor movement OS, but suspect either pharmacologic effect OS by accident or post surgical change EOM: full CF: N/A External: unremarkable Cornea: clear OU AC: D&Q OS, suspect mild RBC in AC ( only direct ophthalmoloscope exam) Iris: mydriatic OD, moderately mydriatic OS with post surgical changes Lens: PC IOL OS, poor view OD, possible PC IOL Vitreous: total vitreous hemorrhage OD; clear OS Posterior pole: not seen OD; normal retina, macula, optic nerve without gross defect OS A: 1) post traumatic intravitreal hemorrhage OD 2) NLP OD 3) intravitreal hemorrhage OD 4) S/P IOL surgery 2 weeks ago OD; PC IOL OS 5) glaucoma - suspect primary open, unspecified stage, OU P: recommend continued use of the antiplatelet medications as needed for systemic vascular problems. This will not aggravate condition in the eye. Recommend continued of all medications related to the ongoing treatment as outlined by surgical travel administrator. Recommend return within the week or as planned on discharge to surgical travel administrator. Expect the pain in the right eye to improve with reduction of pressure in the eye and for that will increase the acetazolamide to 500 mg twice daily orally as this should be more effective than other modalities. Thank you for this consultation on your patient.
[2023-03-11 20:02] LABS: Glucose,Whole Blood 120 mg/dL (70-110)
[2023-03-12] MEDS: ACETAMINOPHEN TAB 325 MG TAB PO PRN ×2 (04:16→15:52)
[2023-03-12] MEDS: prednisoLONE ACETATE 1% OPHTH DROPS 5 ML BTL RIGHT EYE SCH ×6 (04:19→23:00)
[2023-03-12 06:16] LABS: Glucose,Whole Blood 108 mg/dL (70-110)
[2023-03-12] MEDS: INSULIN ASPART (NovoLOG) 100 UNIT/ML VIAL SQ SCH ×4 (06:18→20:58)
[2023-03-12] MEDS: HYDROcodone/APAP 10-325MG 1 EACH TAB PO SCH ×4 (09:13→20:56)
[2023-03-12] MEDS: APIXABAN 5 MG TAB PO SCH ×2 (09:13→20:57)
[2023-03-12] MEDS: POTASSIUM CHLORIDE ER 10 MEQ TAB.ER.PRT PO SCH (09:13)
[2023-03-12] MEDS: amLODIPine 5 MG TAB PO SCH (09:13)
[2023-03-12] MEDS: acetaZOLAMIDE 250 MG TAB PO SCH ×2 (09:13→20:57)
[2023-03-12] MEDS: FUROSEMIDE 40 MG TAB PO SCH (09:13)
[2023-03-12] MEDS: ATORVASTATIN 40 MG TAB PO SCH (09:13)
[2023-03-12] MEDS: DORZOLAMIDE HCL 2% DROPS 10 ML BTL BOTH EYES SCH ×3 (09:15→21:02)
[2023-03-12] MEDS: BRIMONIDINE TARTRATE 0.2% DROPS 5 ML BTL BOTH EYES SCH ×3 (09:15→21:02)
[2023-03-12] MEDS: ATROPINE OPHTH SOLN 1% 5ML BTL RIGHT EYE SCH ×2 (09:15→21:02)
[2023-03-12] MEDS: OFLOXACIN 0.3% OPHTH DROPS 5 ML BOTTLE RIGHT EYE SCH ×3 (09:15→21:03)
[2023-03-12] MEDS: TIMOLOL 0.5% OPHTH DROPS 5 ML BTL RIGHT EYE SCH ×2 (09:15→21:03)
[2023-03-12 11:57] LABS: Glucose,Whole Blood 133 mg/dL (70-110)
--- NOTE | 2023-03-12 13:40 | P.PN ---
Subjective Progress Note Date: 03/12/23 No new copmlaints today. Gen: awake, alert HEENT: normocephalic, atraumatic, good hearing acuity, moist mucous membranes Resp: good air exchange, breathing comfortably with no accessory muscle use CVS: good distal perfusion x 4, GI: soft, NTTP, ND : no SPT, no CVAT, swanson catheter not present MSK: no pitting edema, no clubbing Neuro: non-focal, moving all extremities Psych: cooperative, euthymic mood Hospital course: 82 year old male with difficutlies with ADLS progressively getting more diffi cult over past 3 weeks since his failed cataract surgery on the RIght eye. In the emergency room, patient was afebrile, 119/65, heart rate 72, 99% on room air. CBC showed mild anemia down to 11.2, otherwise unremarkable. Basic metabolic panel showed chloride 108, CO2 of 21, BUN of 21. Liver function tests showed elevated alkaline phosphatase of 192, otherwise unremarkable. TSH is 1.54. Troponin was 0.035 then trended to 0.038. Coags are unremarkable. UA is unremarkable. Informs a, B, RSV, Covid were negative. Chest x-ray showed right basilar effusion persistent although smaller in size. Brain CT was significant for age-related atrophic and chronic small vessel ischemic changes. Face CT showed hemorrhage within the right globe given increased density relative to the left globe. EKG showed atrial fibrillation with rate controlled. Case was discussed with emergency room provider and patient was in the hospital for further evaluation. Intravitreal hemorrhage hemorrhage Status post cataract surgery -Reviewed ophtho notes, they are increasing acetazolamide -Resume atropine eyedrops, brimonidine, dorzolamide, prednisone, ofloxacin -Continue acetazolamide with increased dosing Paroxysmal afib on eliquis resume eliquis Hypertension resume amlodipine and lisinopril Patient is a no code Objective - Vital Signs Vital signs: Vital Signs Temp 98.6 F 03/12/23 08:25 Pulse 52 L 03/12/23 11:30 Resp 16 03/12/23 11:30 BP 98/60 03/12/23 11:30 Pulse Ox 98 03/12/23 11:30 FiO2 Intake & Output 03/11/23 03/12/23 03/12/23 18:59 06:59 18:59 Intake Total 358 540 613 Output Total 1150 270 Balance -792 270 613 Intake: Oral 358 540 613 Output: Urine 1150 270 Other: Voiding Method Urinal Urinal Urinal Diaper Diaper Diaper # Voids 1 - Labs CBC & Chem 7: 03/10/23 16:45 03/10/23 16:45 Labs: Abnormal Lab Results - Last 24 Hours (Table) 03/11/23 03/11/23 03/12/23 Range/Units 16:47 20:00 11:55 POC Glucose (mg/dL) 126 H 120 H 133 H (70-110) mg/dL
[2023-03-12 14:35] VITALS: BMI 23.0
[2023-03-12 17:01] LABS: Glucose,Whole Blood 127 mg/dL (70-110)
[2023-03-12 20:26] LABS: Glucose,Whole Blood 143 mg/dL (70-110)
[2023-03-12] MEDS ORDERED: MORPHINE SULFATE 4 MG/ML SYRINGE IVP STA (22:47)
[2023-03-13] MEDS: prednisoLONE ACETATE 1% OPHTH DROPS 5 ML BTL RIGHT EYE SCH ×2 (03:47→10:16)
[2023-03-13 05:59] LABS: Glucose,Whole Blood 108 mg/dL (70-110)
[2023-03-13] MEDS: INSULIN ASPART (NovoLOG) 100 UNIT/ML VIAL SQ SCH (06:40)
[2023-03-13] MEDS: HYDROcodone/APAP 10-325MG 1 EACH TAB PO SCH ×2 (10:10→12:41)
[2023-03-13] MEDS: POTASSIUM CHLORIDE ER 10 MEQ TAB.ER.PRT PO SCH (10:11)
[2023-03-13] MEDS: FUROSEMIDE 40 MG TAB PO SCH (10:11)
[2023-03-13] MEDS: ATORVASTATIN 40 MG TAB PO SCH (10:11)
[2023-03-13] MEDS: APIXABAN 5 MG TAB PO SCH (10:11)
[2023-03-13] MEDS: TIMOLOL 0.5% OPHTH DROPS 5 ML BTL RIGHT EYE SCH (10:12)
[2023-03-13] MEDS: OFLOXACIN 0.3% OPHTH DROPS 5 ML BOTTLE RIGHT EYE SCH (10:12)
[2023-03-13] MEDS: acetaZOLAMIDE 250 MG TAB PO SCH (10:12)
[2023-03-13] MEDS: BRIMONIDINE TARTRATE 0.2% DROPS 5 ML BTL BOTH EYES SCH (10:13)
[2023-03-13] MEDS: ATROPINE OPHTH SOLN 1% 5ML BTL RIGHT EYE SCH (10:13)
[2023-03-13] MEDS: DORZOLAMIDE HCL 2% DROPS 10 ML BTL BOTH EYES SCH (10:13)
[2023-03-13 10:30] VITALS: BP 90/61; PULSE 70; RESP 18; TEMP 97.7
--- NOTE | 2023-03-13 10:30 | P.DS ---
Providers Date of admission: 03/10/23 18:41 Expected date of discharge: 03/13/23 Attending physician: Rae Leyva DO Consults: 03/11/23 15:58 Consult Physician Routine Consulting Provider: Matt Shea Consult Reason/Comments: intra-global hemorrhage Do you want consulting provider notified?: Yes Primary care physician: [facility] Hospital Course: Discharge Diagnosis: Intravitreal hemorrhage. Patient was evaluated by suction dredge dumping supervisor whom increased dose of Diamox to 250 mg twice daily along with eyedrops. Status post cataract surgery. Patient to continue atropine eyedrops, brimonidine, dorzolamide, prednisone, ofloxacin Paroxysmal atrial fibrillation, continue anticoagulation with eliquis Hypertension. Monitor vital signs and continue daily medication regimen with lisinopril 2.5 mg daily, Lasix 40 mg daily, and amlodipine 5 mg daily. Hospital Course: 82 year old male with difficutlies with ADLS progressively getting more difficult over past 3 weeks since his failed cataract surgery on the RIght eye. In the emergency room, patient was afebrile, 119/65, heart rate 72, 99% on room air. CBC showed mild anemia down to 11.2, otherwise unremarkable. Basic metabolic panel showed chloride 108, CO2 of 21, BUN of 21. Liver function tests showed elevated alkaline phosphatase of 192, otherwise unremarkable. TSH is 1.54. Troponin was 0.035 then trended to 0.038. Coags are unremarkable. UA is unremarkable. Informs a, B, RSV, Covid were negative. Chest x-ray showed right basilar effusion persistent although smaller in size. Brain CT was significant for age-related atrophic and chronic small vessel ischemic changes. Face CT showed hemorrhage within the right globe given increased density relative to the left globe. EKG showed atrial fibrillation with rate controlled. Case was discussed with emergency room provider and patient was in the hospital for further evaluation. Patient was admitted under the services an suction dredge dumping supervisor was consulted. Ophthalmology evaluating patient recommending Diamox 250 mg twice daily along with eyedrops. Medically, patient is stable at this time. Patient has been accepted for admission to [facility] for rehab. Physical exam: Patient seen and examined at bedside. Vital signs reviewed and stable. General: Nontoxic, no distress and appears stated age. Derm: Skin warm and dry, normal coloration for ethnicity. Head: Atraumatic, normocephalic and symmetric. Eyes: EOMs intact, no lid lag, and anicteric sclera Mouth: no lip lesions, mucus membranes moist Cardiovascular: regular rate and rhythm with normal S1S2, systolic murmur, Lungs: Respirations even, regular, and unlabored on room air. Lungs CTA bilaterally, no rhonchi, no rales, no wheezing, and no accessory muscle usage. Abdominal: soft, nontender to palpation, no guarding, no appreciable organomegaly Ext: No gross muscle atrophy, no edema, no contractures. Left AKA Neuro: Speech clear, face symmetrical and CN II-XII grossly intact with no noted focal neuro deficits Psych: Alert and oriented to person, place, time, and situation. Appropriate and pleasant affect. A total of 36 minutes of time were spent preparing this complex discharge summary. Pt was discharged on 03/13/23 at 10:28 AM. Patient was seen independently by Nurse Practitioner. This document was prepared using [employer] dictation software. Please allow for errors in licensed mortgage loan officer while rare they do occur. Noah Buck NP rendered care for this patient independently, reviewed the findings and plan as documented in the note above. I did not physically speak with or examine the patient on this date. Patient Condition at Discharge: Stable Plan - Discharge Summary New Discharge Prescriptions: New HYDROcodone/APAP 10-325MG [Erie 10-325] 2 each PO QID PRN #16 tab PRN Reason: Pain Continue Potassium Chloride ER [K-Dur 10] 10 meq PO DAILY Apixaban [Eliquis] 5 mg PO BID #60 tab Atorvastatin [Lipitor] 40 mg PO DAILY Cholecalciferol [Vitamin D3 (25 Mcg = 1000 Iu)] 25 mcg PO DAILY lisinopriL [Zestril] 2.5 mg PO DAILY #30 tab prednisoLONE ACETATE 1% OPHTH [Pred Forte 1%] 1 drop RIGHT EYE Q4HR acetaZOLAMIDE [Diamox] 250 mg PO BID Furosemide [Lasix] 40 mg PO DAILY amLODIPine [Norvasc] 5 mg PO DAILY #30 tab Brinzolamide/Brimonidine Tart [Simbrinza 1%-0.2% Eye Drops] 1 drop BOTH EYES TID Timolol [Betimol 0.5% Ophth Soln] 1 drop RIGHT EYE BID Ofloxacin 0.3% Ophth Soln [Ocuflox Ophth Soln] 1 drop RIGHT EYE TID Atropine Ophth Soln 1% 5Ml [Isopto Atropine 1% 5Ml] 1 drop RIGHT EYE BID No Action Hydrocodone/Acetaminophen [Erie 10-325] 2 tab PO QID Discharge Medication List Hydrocodone/Acetaminophen [Erie 10-325] 2 tab PO QID 04/10/17 [History] Potassium Chloride ER [K-Dur 10] 10 meq PO DAILY 06/24/20 [History] Apixaban [Eliquis] 5 mg PO BID #60 tab 06/26/20 [Rx] Atorvastatin [Lipitor] 40 mg PO DAILY 09/23/21 [History] Cholecalciferol [Vitamin D3 (25 Mcg = 1000 Iu)] 25 mcg PO DAILY 10/04/22 [History] Furosemide [Lasix] 40 mg PO DAILY 10/04/22 [History] amLODIPine [Norvasc] 5 mg PO DAILY #30 tab 10/05/22 [Rx] lisinopriL [Zestril] 2.5 mg PO DAILY #30 tab 10/05/22 [Rx] Atropine Ophth Soln 1% 5Ml [Isopto Atropine 1% 5Ml] 1 drop RIGHT EYE BID 02/19/23 [History] Brinzolamide/Brimonidine Tart [Simbrinza 1%-0.2% Eye Drops] 1 drop BOTH EYES TID 02/19/23 [History] Ofloxacin 0.3% Ophth Soln [Ocuflox Ophth Soln] 1 drop RIGHT EYE TID 02/19/23 [History] Timolol [Betimol 0.5% Ophth Soln] 1 drop RIGHT EYE BID 02/19/23 [History] acetaZOLAMIDE [Diamox] 250 mg PO BID 02/19/23 [History] prednisoLONE ACETATE 1% OPHTH [Pred Forte 1%] 1 drop RIGHT EYE Q4HR 02/19/23 [History] HYDROcodone/APAP 10-325MG [Erie 10-325] 2 each PO QID PRN #16 tab 03/13/23 [Rx] Follow up Appointment(s)/Referral(s): Matt Shea MD [STAFF PHYSICIAN] - 1 Week [facility] [Primary Care Provider] - 1-2 days Activity/Diet/Wound Care/Special Instructions: Activity: As tolerated. Take breaks as needed. Diet: Heart healthy and carb consistent diet. Avoid salts, or foods with hidden salts such as canned or boxed foods and frozen dinners. Extra salt makes your heart work harder and traps the fluid in your body for longer. Special Instructions: Take all of your medications as directed and remember to keep all of your doctor's appointments and follow-up as needed. It is important to follow-up with suction dredge dumping supervisor in 1 week as discussed. Thank you for allowing us to participate in your care, it was truly a pleasure having you for our patient!!! Discharge Disposition: TRANSFER TO SNF/ECF
[2023-03-13 11:30] LABS: Glucose,Whole Blood 120 mg/dL (70-110)
[2023-03-13] MEDS: amLODIPine 5 MG TAB PO SCH (12:44)
== END 2023-03-13 13:13 | DRG 125 ==
LOC: EC 15:13 → 3SCARD 18:41
PROVIDERS: ADMIT Internal Medicine; ATTEND Internal Medicine
DX: H43.11 Vitreous hemorrhage, right eye (principal); G50.1 Atypical facial pain; R62.7 Adult failure to thrive; I10 Essential (primary) hypertension; I48.0 Paroxysmal atrial fibrillation; Z86.16 Personal history of COVID-19; Z20.822 Contact with and (suspected) exposure to COVID-19; Z79.01 Long term (current) use of anticoagulants; H40.9 Unspecified glaucoma; H40.1130 Primary open-angle glaucoma, bilateral, stage unspecified; D64.9 Anemia, unspecified; G31.89 Other specified degenerative diseases of nervous system; E78.5 Hyperlipidemia, unspecified; E86.0 Dehydration; H54.7 Unspecified visual loss; Z79.899 Other long term (current) drug therapy; Z98.41 Cataract extraction status, right eye; Z89.612 Acquired absence of left leg above knee; Z86.73 Personal history of transient ischemic attack (TIA), and cerebral infarction without residual deficits; Z88.5 Allergy status to narcotic agent
CPT/HCPCS: 36415; 70450; 70486; 71046; 80053; 81003; 83036; 83605; 83735; 84443; 84484; 85025; 85610; 85730; 87636; 93005; 94760; 96361; 96374; 96375; 99285

== ENCOUNTER 2023-04-10 20:21 | Emergency (ER) | payer OTHER, MEDICARE ==
[2023-04-10 20:35] VITALS: TEMP 97.9
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
[2023-04-10] MEDS ORDERED: HYDROcodone/APAP 10-325MG 1 EACH TAB PO ONE (21:50)
[2023-04-10 22:12] LABS: ALT 16 U/L (4-49); AST 20 U/L (17-59); African American GFR (CKD) 52 (>60 ml/min/1.73 sqM); Albumin 3.1 g/dL (3.5-5.0); Alkaline Phosphatase 169 U/L (38-126); Anion Gap 12 mmol/L; Blood Urea Nitrogen 41 mg/dL (9-20); Calcium 8.4 mg/dL (8.4-10.2); Carbon Dioxide 18 mmol/L (22-30); Chloride 106 mmol/L (98-107); Glucose 109 mg/dL (74-99); Non-African American GFR(CKD) 45 (>60 ml/min/1.73 sqM); Potassium 3.7 mmol/L (3.5-5.1); Sodium 136 mmol/L (137-145); Total Bilirubin 0.8 mg/dL (0.2-1.3); Total Protein 6.5 g/dL (6.3-8.2)
[2023-04-10 22:22] LABS: Anisocytosis Slight; Basophils % (A) 0 %; Eosinophils # (A) 0.1 k/uL (0-0.7); Eosinophils % (A) 1 %; HGB 10.5 gm/dL (13.0-17.5); Hypochromasia Slight; Lymphocytes # (A) 0.6 k/uL (1.0-4.8); Lymphocytes % (A) 7 %; MCH 28.3 pg (25.0-35.0); MCHC 31.9 g/dL (31.0-37.0); MCV 88.6 fL (80.0-100.0); Mean Platelet Volume 8.3; Monocytes # (A) 0.3 k/uL (0-1.0); Monocytes % (A) 4 %; Neutrophils % (A) 86 %; Platelet Count 250 k/uL (150-450); RBC 3.72 m/uL (4.30-5.90); RDW 17.4 % (11.5-15.5); WBC 8.1 k/uL (3.8-10.6)
[2023-04-10] MEDS ORDERED: SODIUM CHLORIDE 0.9% 1,000 ML IV STA (22:24)
[2023-04-10 22:28] LABS: INR 1.2 (<1.2); Partial Thromboplastin Time 32.8 sec (22.0-30.0); Prothrombin Time 12.1 sec (9.0-12.0)
[2023-04-11 02:26] VITALS: RESP 16
[2023-04-11] MEDS ORDERED: HYDROcodone/APAP 10-325MG 1 EACH TAB PO ONE (03:29)
[2023-04-11 05:43] VITALS: BP 104/67; PULSE 71
== END 2023-04-11 09:31 | disposition home or self-care (01) ==
LOC: EC 20:21
DX: R53.1 Weakness (principal); I95.9 Hypotension, unspecified; E78.5 Hyperlipidemia, unspecified; I10 Essential (primary) hypertension; I48.91 Unspecified atrial fibrillation; Z86.16 Personal history of COVID-19; Z86.73 Personal history of transient ischemic attack (TIA), and cerebral infarction without residual deficits; Z87.891 Personal history of nicotine dependence; Z88.5 Allergy status to narcotic agent; Z88.6 Allergy status to analgesic agent; Z88.8 Allergy status to other drugs, medicaments and biological substances; Z79.899 Other long term (current) drug therapy
CPT/HCPCS: 36415; 80053; 82272; 83605; 85025; 85610; 85730; 86850; 86900; 86901; 93005; 96360; 99284

== ENCOUNTER 2023-10-28 10:29 | Emergency (ER) | payer OTHER, MEDICARE ==
[2023-10-28 10:37] VITALS: RESP 18
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
[2023-10-28 11:16] LABS: Anisocytosis Slight; Appearance,Urine Clear (Clear); Basophils % (A) 0 %; Bilirubin,Urine Negative (Negative); Blood,Urine Negative (Negative); Color,Urine Colorless; Eosinophils # (A) 0.1 k/uL (0-0.7); Eosinophils % (A) 3 %; Glucose,Urine (UA) Negative (Negative); HCT 31.3 % (39.0-53.0); HGB 10.3 gm/dL (13.0-17.5); Ketones,Urine Negative (Negative); Leukocyte Esterase,Urine Negative (Negative); Lymphocytes # (A) 0.9 k/uL (1.0-4.8); Lymphocytes % (A) 22 %; MCH 28.5 pg (25.0-35.0); MCHC 32.8 g/dL (31.0-37.0); Mean Platelet Volume 7.5; Monocytes # (A) 0.3 k/uL (0-1.0); Monocytes % (A) 6 %; Neutrophils # (A) 2.7 k/uL (1.3-7.7); Neutrophils % (A) 67 %; Nitrite,Urine Negative (Negative); Platelet Count 178 k/uL (150-450); Protein,Urine Negative (Negative); RDW 16.1 % (11.5-15.5); Specific Gravity,Urine 1.005 (1.001-1.035); Urobilinogen,Urine <2.0 mg/dL (<2.0); WBC 4.1 k/uL (3.8-10.6)
[2023-10-28 11:31] LABS: Amphetamine Screen,Urine Not Detected (NotDetected); Barbiturate Screen,Urine Not Detected (NotDetected); Benzodiazepines Screen,Urine Not Detected (NotDetected); Cocaine Screen,Urine Not Detected (NotDetected); Methadone Screen, Urine Not Detected (NotDetected); Opiate Screen,Urine Detected (NotDetected); Oxycodone Screen, Urine Not Detected (NotDetected); Phencyclidine Screen,Urine Not Detected (NotDetected); Tricyclic Antidepressant,Urine Not Detected (NotDetected); Urn Cannabinoid Scrn Not Detected (NotDetected)
[2023-10-28 11:36] LABS: African American GFR (CKD) 71 (>60 ml/min/1.73 sqM); Alcohol <10 mg/dL; Anion Gap 9 mmol/L; Blood Urea Nitrogen 31 mg/dL (9-20); Calcium 9.1 mg/dL (8.4-10.2); Carbon Dioxide 23 mmol/L (22-30); Chloride 107 mmol/L (98-107); Glucose 97 mg/dL (74-99); Non-African American GFR(CKD) 61 (>60 ml/min/1.73 sqM); Sodium 139 mmol/L (137-145)
[2023-10-28] MEDS: SODIUM CHLORIDE 0.9% 500 ML 500 ML IV STA (14:30)
[2023-10-28] MEDS: HYDROcodone/APAP 10-325MG 1 EACH TAB PO ONE (14:38)
[2023-10-28 16:44] VITALS: BP 128/69; PULSE 68; TEMP 98.2
== END 2023-10-28 16:38 | disposition home or self-care (01) ==
LOC: EC 10:29
DX: R44.1 Visual hallucinations (principal); I10 Essential (primary) hypertension; I48.91 Unspecified atrial fibrillation; E78.5 Hyperlipidemia, unspecified; Z79.899 Other long term (current) drug therapy; Z88.6 Allergy status to analgesic agent; Z88.5 Allergy status to narcotic agent; Z86.73 Personal history of transient ischemic attack (TIA), and cerebral infarction without residual deficits; Z87.891 Personal history of nicotine dependence; Z86.16 Personal history of COVID-19; Z98.42 Cataract extraction status, left eye; Z89.612 Acquired absence of left leg above knee
CPT/HCPCS: 36415; 80048; 80306; 80320; 81003; 85025; 93005; 96360; 99285